=== PATIENT | male | born 1940 | race Caucasian/White ===

== ENCOUNTER 2024-12-02 14:36 | Inpatient (IN) | payer MEDICARE, SELFPAY ==
[2024-12-02 14:40] VITALS: BP 124/76; PULSE 112; RESP 18; O2SAT 92
--- NOTE | 2024-12-02 15:13 | ED.GENADULT ---
HPI - General Adult General Chief complaint: Weakness Stated complaint: Weakness Time Seen by Provider: 12/02/24 14:52 History of Present Illness HPI narrative: This 84-year-old male comes in by ambulance and his daughter also came separately. The patient himself states that he feels okay and things are going okay at home. His daughter explains that he has been on hospice care but they just cancel that prior to coming here. He had been on hospice care with his and his a few months ago. Since then he has not been eating much except he does take boost. He is having more frequent falls but yet is able to get up and ambulate. He has walkers at home but he usually does not use them. He does not report any injury from the falls and seems pleasant and has no complaints. The patient himself thinks that he is fine to go back home. His daughter states that she would be glad to take him back if he can function well enough but over the last few days he has had frequent falls and has not been functioning so well. He was incontinent of urine prior to arrival. He does have CHF for his COPD and has supplemental oxygen at home to be used when exerting himself. His oximetry here is at 92% on room air upon arrival. He does have some tachycardia on arrival. His daughter states that he has been more confused lately and she feels under the current situations that he will need some extra level of care such as a nursing facility, rehab for strengthening, or assisted living. Review of Systems Narrative: Constitutional: No fevers, no weight gain or loss. Eyes: No discharge. No vision changes. HENT: No congestion, no sore throat, no ear pain. Cardiovascular: No chest pain, no palpitations. Respiratory: No shortness of breath, no wheezes, no cough. Gastrointestinal: No abdominal pain, no vomiting, no diarrhea. Genitourinary: No dysuria, no hematuria. Musculoskeletal: Normal range of motion. Skin: No rashes, no pruritis. Neurological: No dizziness, weakness, sensory change, speech change. Endo/Heme/Allergies: No bruising or bleeding. No polydipsia. Pysch: no suicidality, no anxiety, no insomnia. All other systems reviewed and are negative. PFSH PFSH Social History Smoking Status: Never smoker Do you use any of these nicotine containing products: None Second hand tobacco smoke exposure: No How often do you have a drink containing alcohol: never AUDIT-C Alcohol total score: 0 Non-prescribed substance use: denies use service: No Exam Narrative: Exam Narrative: Constitutional: Well-developed, well-nourished, no acute distress. HEENT: Normocephalic, atraumatic. Neck: Normal range of motion. Nontender. Supple. Heart: Regular. No murmurs. Tachycardia. Intact distal pulses. Lungs: Clear to auscultation. No chest discomfort. No wheezes, rhonchi, or rales. Abdomen: Normal bowel sounds. Nontender. No rebound tenderness. Genitalia: Deferred. Back: No midline tenderness. Normal range of motion. Extremities: Normal range of motion. No injury. Skin: Intact. No rash. Warm. No erythema or pallor. Bruising throughout both forearms. Neurologic: No altered sensation. No weakness. Alert. Nursing notes and vitals signs are reviewed. Const: Vital Signs, click to edit/add: Vital Signs - 24 hr 12/02/24 14:40 Pulse Rate [Pulse Oximeter] 112 H Respiratory Rate 18 Blood Pressure [Ri ght Upper Arm] 124/76 Pulse Oximetry 92 Oxygen Delivery Me thod Room Air Course Vital Signs Vital signs: Initial Vital Signs Temperature Source Temporal Artery Scan 12/02/24 14:40 Pulse Rate 112 H 12/02/24 14:40 Respiratory Rate 18 12/02/24 14:40 Blood Pressure 124/76 12/02/24 14:40 Blood Pressure Mean 92 12/02/24 14:40 Blood Pressure Position Semi-Fowlers 12/02/24 14:40 Pulse Oximetry 92 12/02/24 14:40 Oxygen Delivery Method Room Air 12/02/24 14:40 Vital Signs Pulse Rate 112 H 12/02/24 14:40 Respiratory Rate 18 12/02/24 14:40 Blood Pressure 124/76 12/02/24 14:40 Pulse Oximetry 92 12/02/24 14:40 Oxygen Delivery Method Room Air 12/02/24 14:40 Pulse Rate 112 H 12/02/24 14:40 Respiratory Rate 18 12/02/24 14:40 Blood Pressure 124/76 12/02/24 14:40 Pulse Oximetry 92 12/02/24 14:40 Oxygen Delivery Method Room Air 12/02/24 14:40 Medical Decision Making MDM Narrative Medical decision making narrative: this patient comes in with his daughter who reports more frequent falls and confusion recently. An IV was established and labs are acquired. Urinalysis shows evidence of urinary tract infection. Other lab results are not significantly remarkable. The patient did receive an IV dose of Rocephin. I did speak with the hospitalist for admission for this patient. Hospitalist is requesting a CT scan of his head which is ordered. The patient had been on hospice care but this was canceled. His daughter is willing to take him home if he can function with less confusion which may be possible with treatment moving of his urinary tract infection. Otherwise the daughter is stating comfort cares is what is preferred for him. Lab Data Labs: Lab Results 12/02/24 12/02/24 Range/Units 15:05 15:35 WBC 10.11 (4.50-11.00) K/uL RBC 4.33 (4.30-5.90) m/uL Hgb 15.2 (13.5-17.5) gm/dL Hct 45.1 (37.0-53.0) % MCV 104 H (80-100) fL MCH 35 H (26-34) pg MCHC 34 (32-36) gm/dL RDW Coeff of Alexandra 15.5 (11.5-15.5) % Plt Count 142 (140-440) K/uL Neut % (Auto) 86.1 H (42.0-72.0) % Lymph % (Auto) 6.0 L (20-44) % [place] % (Auto) 3.1 (0.0-11.0) % Eos % (Auto) 0.0 (0.0-7.0) % Baso % (Auto) 0.0 (0.0-3.0) % Neut # (Auto) 8.70 H (1.7-7.0) K/uL Lymph # (Auto) 0.60 L (0.90-2.90) K/uL [place] # (Auto) 0.30 (0.00-0.90) K/UL Eos # (Auto) 0.00 (0.00-0.50) K/uL Baso # (Auto) 0.00 (0.00-0.30) K/uL Abs Immat Gran (auto) 0.49 H (0.00-0.30) K/uL Imm/Tot Granulo (auto) 4.8 % Sodium 136 (135-149) mmol/L Potassium 4.7 (3.6-5.1) mmol/L Chloride 100 (96-114) mmol/L Carbon Dioxide 25 (20-32) mmol/L Anion Gap 11 (7-15) mEq/L BUN 52 H (7-30) mg/dL Creatinine 1.0 (0.5-1.5) mg/dL Estimated GFR 73 ml/min Glucose 308 H (60-115) mg/dL Calcium 9.0 (8.4-10.6) mg/dL Urine Color Yellow (Yellow) Urine Appearance Cloudy A (Clear) Urine pH 5.0 (5.0-8.5) Ur Specific [place] 1.025 (1.000-1.030) Urine Protein 1+ A (Negative) Urine Glucose (UA) Trace A (Negative) Urine Ketones 1+ A (Negative) Urine Blood Trace-intact A (Negative) Urine Nitrite Negative (Negative) Urine Bilirubin Negative (Negative) Urine Urobilinogen 0.2 (0.2-1.0) Ur Leukocyte Esterase Trace A (Negative) Urine RBC 0-2 (0-2) Urine WBC 10-25 A (0-5) Ur Squamous Epith Cells Few (None-Few) Other Sediment Few A (None) Urine Bacteria Moderate A (None) Hyaline Casts Few (None-Few) Fine Granular Casts Few A (None) Imaging Data Chest x-ray: Radiologist's impression: Low lung volumes. Blunting of the left costophrenic angle which may indicate atelectasis and/or trace effusion. Faint bibasilar pulmonary opacities which may represent atelectasis or consolidation. ECG Data Attestation: I personally reviewed and interpreted this ECG as follows: Interpretation: Sinus tachycardia, rate 110 beats per minute. There are no specific ST or T-wave abnormalities. Discharge Plan Discharge Clinical Impression: Urinary tract infection, Falls frequently, Acute confusion Patient Disposition: Admitted As Observation Condition: Unchanged
[2024-12-02 15:34] LABS: Appearance Urine Cloudy (Clear); Bilirubin Urine Negative (Negative); Blood Urine Trace-intact (Negative); Color Urine Yellow (Yellow); Glucose Urine Trace (Negative); Ketones Urine 1+ (Negative); Leukocyte Esterase Urine Trace (Negative); Nitrite Urine Negative (Negative); Protein Urine 1+ (Negative); Specific Gravity Urine 1.025 (1.000-1.030); Urobilinogen Urine 0.2 (0.2-1.0)
[2024-12-02 15:41] LABS: Hematocrit 45.1 % (37.0-53.0); Hemoglobin* 15.2 gm/dL (13.5-17.5); Immature Granulocytes Abs Auto 0.49 K/uL (0.00-0.30); Immature Granulocytes Pct Auto 4.8 %; Mean Corpuscular HGB Conc 34 gm/dL (32-36); Mean Corpuscular Hemoglobin 35 pg (26-34); Mean Corpuscular Volume 104 fL (80-100); Monocytes Percent Auto 3.1 % (0.0-11.0); Platelet Count* 142 K/uL (140-440); RDW Coefficient of Variation % 15.5 % (11.5-15.5); Red Blood Count 4.33 m/uL (4.30-5.90); White Blood Count* 10.11 K/uL (4.50-11.00)
[2024-12-02 15:49] LABS: Bacteria Urine Moderate; RBC Urine 0-2 (0-2); Squamous Epithelial Cell Urine Few (None-Few)
[2024-12-02 15:50] LABS: Fine Granular Casts Urine Few; Hyaline Casts Urine Few (None-Few); Other Sediment Urine Few
[2024-12-02 15:57] LABS: Chloride* 100 mmol/L (96-114); Potassium* 4.7 mmol/L (3.6-5.1); Sodium* 136 mmol/L (135-149)
[2024-12-02 16:00] LABS: Anion Gap 11 mEq/L (7-15); Blood Urea Nitrogen* 52 mg/dL (7-30); Carbon Dioxide* 25 mmol/L (20-32); Estimated Glomerular Filt Rate 73 ml/min; Glucose* 308 mg/dL (60-115)
[2024-12-02 16:01] LABS: Neutrophils Percent Auto 86.1 % (42.0-72.0); Slide Review Reflex No
--- OUTSIDE RECORDS SUMMARY | 2024-12-02 16:50 | XMS_ITS | Encounter Summary ---
Author Organization [place] Address [facility] [place] [address] Care Team Providers Care Tool Designer Name Role Phone Manish Rmoero MD Primary Care Provider [phone] Manish Romero MD Unavailable [phone] Zhang Bee Unavailable Unavailable Iraj Adair MD Unavailable Un available Obinna Ramirez MD Primary Care Provider [phone] Obinna Ramirez MD Unavailable Jessica Joel APRN YARD ATTENDANT Unavailable [phone] Kristina Dewey PhD Unavailable [phone] Rebeka Bal [facility] Unavailable [phone] Tianna Cooper [facility] Unavailable [phone] Encounter Details Date Type Department Care Team (Late st Contact Info) Description 07/15/[address] 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 No / Unsure 07/11/2020 7:19 AM CDT documented as of this encounter Plan of Treatment Not on file documented as of this encounter Visit Diagnoses Not on filedocumented in this encounter Additional Health Concerns Infection Onset Date Last Indicated Resolved Time COVID-19 12/26/2022 12/28/2022 01/16/2023 11:3 9 PM CDT Assessment Noted Time PHQ-9 Depression Total Score: 20 020 8:52 AM CDT documented as of this encounter Care Teams Tool Designer Relationship Specialty Start Date End Date Manish Romero MD PCP - General Family Practice 01/22/15 06/22/22 [place] [address] [address] [place] [address] PCP - General Family Medicine 06/23/22 [place] [address] [place] [address] Assigned PCP 01/20/15 06/19/22 Zhang Bee Personal Advocate & Liaison (PAL) 03/24/21 01/26/22 Iraj Adair MD Assigned Heart and Vascular Provider 12/21/21 06/18/23 [place] [address] [place] [address] Assigned PCP 06/27/22 Jessica Joel APRN YARD ATTENDANT [address] [place] [phone] Assigned PCP 06/20/22 06/26/22 Kristina Dewey, PhD [address] [place] [address] Psychologist Neuropsychology 01/04/24 Rebeka Bal, [facility] Community Health Worker 08/15/2408/04 Tianna Cooper, [facility] Lead Accounting Director 08/16/24 documented as of this encounter
--- OUTSIDE RECORDS SUMMARY | 2024-12-02 16:50 | XMS_ITS | Encounter Summary ---
Author Organization [place] Address [facility] [place] [address] Care Team Providers Care Engineering Supervisor Name Role Phone Manish Romero MD Primary Care Provider [phone] Manish Romero MD Unavailable [phone] Manish Romero MD Unavailable [phone] Zhang eBe Unavailable Unavailable Iraj Adari MD Unavailable Un available Obinna Ramirez MD Primary Care Provider [phone] Obinna Ramirez MD Unavailable Jessica Joel APRN [facility] Unavailable [phone] Kristina Dewey PhD Unavailable [phone] Rebeka Bal W Unavailable [phone] [facility] Unavailable [phone] Encounter Details Date Type Department Care Team (Late st Contact Info) Description 02/06/[address] 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 PMO CONSULTANT Gender Identity Not on file Sexual Orientation Not on file documented as of this encounter Plan of Treatment Not on file documented as of this encounter Visit Diagnoses Not on filedocumented in this encounter Additional Health Concerns Infection Onset Date Last Indicated Resolved Time COVID-19 12/26/2022 12/28/2022 01/16/2023 11:3 9 PM CDT documented as of this encounter Care Teams Engineering Supervisor Relationship Specialty Start Date End Date Manish Romero MD PCP - General Family Practice 01/22/15 06/22/22 [place] [address] [place] [address] PCP - Assigned PCP 01/20/15 12/06/18 [place] [address] [place] [address] PCP - General Family Medicine 06/23/22 [place] [address] [place] [address] Assigned PCP 01/20/15 06/19/22 Zhang Bee Personal Advocate & Liaison (PAL) 03/24/21 01/26/22 Iraj Adair MD Assigned Heart and Vascular Provider 12/21/21 06/18/23 [place] [address] [place] [address] Assigned PCP 06/27/22 Jessica Joel APRN ADVERTISING ASSISTANT [address] [place] [address] Assigned PCP 06/20/22 06/26/22 Kristina Dewey, PhD [address] [place], [place] [address] Psychologist Neuropsychology 01/04/24 Rebeka Bal, [facility] Community Health Worker 08/15/2408/04 Tianna Cooper, [facility] Lead Workers Compensation Claims Assistant 08/16/24 documented as of this encounter
--- OUTSIDE RECORDS SUMMARY | 2024-12-02 16:51 | XMS_ITS | Clinical Summary ---
Author Organization [employer] [facility] Address [address] [place] [address] Care Team Providers Care Steam Hoist Operator Name Role Phone Unavailable Primary Care Provider Unavailabl e Allergies No known active allergies Medications aspirin chewable 81 mg chewable tablet Chew 81 mg by mouth once daily with a meal. Active atorvastatin (LIPITOR) 40 mg tablet Take 40 mg by mouth once daily. Active cyanocobalamin (VITAMIN B12) injection Inject 1,000 mcg intramuscular one time. Active FLUoxetine (PROZAC) 20 mg capsule Take 20 mg by mouth every morning. Active Levothyroxine 50 mcg cap Take by mouth before breakfast. Active mirtazapine (REMERON) 30 mg tablet Take 30 mg by mouth at bedtime. Active omeprazole (PRILOSEC) 40 mg Delayed-Releas e capsule Take 40 mg by mouth once daily. Active sucralfate (CARAFATE) 1 gram tablet Take 1 g by mouth 4 times daily before meals and at bedtime. Active thiamine (Vitamin B-1) 50 mg tablet Take 50 mg by mouth once daily. Active Social History Tobacco Use Types Packs/Day Years Used Date Smoking Tobacco: Never Smokeless Tobacco: Never Social Connections Answer Date Recorded Frequency of Communication with Friends and Fami ly Not on file 10/06/2023 Sex and Gender Information Value Date Recorded Sex Assigned at Not on file Legal Sex Male 6:06 PM CDT Gender Identity Not on file Sexual Orientation Not on file Obstetrics History Last Filed Vital Signs Vital Sign Reading Time Taken Comments Blood Pressure 124/65 03/28/2021 5:02 PM CDT Pulse 93 03/28/2021 5:02 PM CDT Temperature 37.2 C (98.9 F) 03/28/2021 5:02 PM CDT Respiratory Rate - - Oxygen Saturation 98% 03/28/2021 5:02 PM CDT Inhaled Oxygen Concentration - - Weight 75.8 kg (167 lb) 03/28/2021 5:02 PM CDT Height - - Body Mass Index - - Plan of Treatment Health Maintenance Due Date Last Done Comments Tdap 1949 Depression screening for age 12+ 1950 BMI (ht and wt on same day) for age 18+ 02/05/1956 Tetanus booster 1958 Pneumococcal series for age 50+ (1 of 1 - PCV) 988 Zoster (shingles) series for age 50+ (1 of 2) 02/04/19 88 RSV vaccine for adults or pr egnancy (1 - 1-dose 75+ series) 2013 COVID-19 vaccine series ( - 2023- season) 4 Influenza for age 65+ 06/04/2024 Insurance [facility]
--- OUTSIDE RECORDS SUMMARY | 2024-12-02 16:51 | XMS_ITS | Encounter Summary ---
Author Organization [place] Address [facility] [place] [address] Care Team Providers Care Mail Handlers Supervisor Name Role Phone Manish Romero MD Primary Care Provider [phone] Manish Romero MD Unavailable [phone] Zhang Bee Unavailable Unavailable Iraj Adair MD Unavailable Un available Obinna Ramirez MD Primary Care Provider [phone] Obinna Ramirez MD Unavailable Jessica Joel APRN AGRICULTURE EXTENSION SPECIALIST Unavailable [phone] Kristina Dewey PhD Unavailable [phone] Rebeka Bal [facility] Unavailable [phone] Tianna Cooper [facility] Unavailable [phone] Encounter Details Date Type Department Care Team (Late st Contact Info) Description 03/18/2021 MyC Medical Advice [facility] [address] [place] [address] [place] [address] [place] [address] Social History Tobacco Use Types Packs/Day Years Used Date Smoking Tobacco: Former Smokeless Tobacco: Never Alcohol Use Standard Drinks/Week Comments Yes 0 (1 standard drink = 0.6 oz pur e alcohol) 2 glasses of trisha a night PHQ-2 Answer Date Recorded PHQ-2 Score 5 07/11/2020 Sex and Gender Information Value Date Recorded Sex Assigned at Not on file 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 No / Unsure 02/17/2021 1:15 PM CDT documented as of this encounter Plan of Treatment Not on file documented as of this encounter Visit Diagnoses Not on filedocumented in this encounter Additional Health Concerns Infection Onset Date Last Indicated Resolved Time COVID-19 12/26/2022 12/28/2022 01/16/2023 11:3 9 PM CDT Assessment Noted Time PHQ-9 Depression Total Score: 20 020 8:52 AM CDT documented as of this encounter Care Teams Mail Handlers Supervisor Relationship Specialty Start Date End Date Manish Romero MD PCP - General Family Practice 01/22/15 06/22/22 [place] [address] [place] [address] PCP - General Family Medicine 06/23/22 [place] [address] [facility] [place] [address] Assigned PCP 01/20/15 06/19/22 Zhang Bee Personal Advocate & Liaison (PAL) 03/24/21 01/26/22 Iraj Adair MD Assigned Heart and Vascular Provider 12/21/21 06/18/23 [place] [address] [place] [address] Assigned PCP 06/27/22 Jessica Joel APRN AGRICULTURE EXTENSION SPECIALIST [address] [place] [id number] Assigned PCP 06/20/22 06/26/22 Kristina Dewey, PhD [address] [place], [place] [address] Psychologist Neuropsychology 01/04/24 Rebeka Bal, [facility] Community Health Worker 08/15/2408/04 Tianna Cooper, [facility] Lead Clay Molder 08/16/24 documented as of this encounter
--- OUTSIDE RECORDS SUMMARY | 2024-12-02 16:51 | XMS_ITS | Encounter Summary ---
Author Organization [place] Address [address] [place] [address] Care Team Providers Care Drosser Name Role Phone Obinna Ramirez MD Primary Care Provider Obinna Ramirez MD Unavailable Kristina Dewey PhD Unavailable [phone] Rebeka Bal [facility] Unavailable [phone] Tianna Cooper [facility] Unavailable [phone] Encounter Details Date Type Department Care Team (Late st Contact Info) Description 08/11/2024 MyC Medical Advice [facility] [id number] [place] [address] Jessica Xiong RN Social History Tobacco Use Types Packs/Day Years Used Date Smoking Tobacco: Former Passive Smoke Exposure: Past Smokeless Tobacco: Never Alcohol Use Standard Drinks/Week Comments Not Currently 0 (1 standard drink = 0.6 oz pur e alcohol) 2 glasses of trisha a night Social Connection and Isolat ion Panel [NHANES] Answer Date Recorded In a typical week, how many times do you talk on the phone with family, friends, or neighbors? Never 06/02/2023 How often do you get togethe r with friends or relatives? Once a week 06/02/2023 How often do you attend [facility] or holiness services? More than 4 times per year 06/02/2023 Do you belong to any clubs o r organizations such as mu-ism groups, unions, fraternal or athletic groups, or school groups? No 06/02/2023 Attends Club or Organization Meetings Not on clarisse e 06/02/2023 Are you , , di vorced, , never , or living with a partner? 06/02/2023 AUDIT-C Answer Date Recorded Q1: How often do you have a drink containing alcohol? Never 06/02/2023 Q2: How many drinks containi ng alcohol do you have on a typical day when you are drinking? Patient does not drink Q3: How often do you have si x or more drinks on one occasion? Never 06/02/2023 Overall Financial Resource Strain (CARDIA) Answe r Date Recorded How hard is it for you to pa y for the very basics like food, housing, medical care, and heating? Not hard at all 06/02/2023 PHQ-2 Answer Date Recorded PHQ-2 Score 6 07/12/2024 [facility] of Occupat ional [facility] - Occupational Stress Questionnaire Answer Date Recorded Do you feel stress - tense, restless, nervous, or anxious, or unable to sleep at night because your mind is troubled all the time - these days? Not at all 06/02/2023 Exercise Vital Sign Answer Date Recorde d On average, how many days pe r week do you engage in moderate to strenuous exercise (like a brisk walk)? 0 days 06/02/2023 On average, how many minutes do you engage in exercise at this level? 0 min 06/02/2023 Hunger Vital Sign Answer Date Recorded Within the past 12 months, y ou worried that your food would run out before you got the money to buy more. Never true 06/02/20 23 Within the past 12 months, t he food you bought just didn't last and you didn't have money to get more. Never true 06/02/2023 PRAPARE - Transportation Answer Date Re corded In the past 12 months, has l ack of transportation kept you from medical appointments or from getting medications? No 05/06 In the past 12 months, has l ack of transportation kept you from meetings, work, or from getting things needed for daily living? No 06/02/2023 Housing Stability Vital Sign Answer Ruddy e Recorded In the last 12 months, was t here a time when you were not able to pay the mortgage or rent on time? No 06/02/2023 In the last 12 months, how many places have you lived? 2 06/02/2023 In the last 12 months, was t here a time when you did not have a steady place to sleep or slept in a penitentiary (including now)? No 06/02/2023 Adolescent Education Answer Date Record ed Getting School Help Needed Not on file 07/03 Interpersonal Safety Answer Date Record ed Do you feel physically and e motionally safe where you currently live? Yes 08/30/2023 Within the past 12 months, h ave you been hit, slapped, kicked or otherwise physically hurt by someone? No 08/30/2023 Within the past 12 months, h ave you been humiliated or emotionally abused in other ways by your partner or ex-partner? 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 INSPECTOR Gender Identity Not on file Sexual Orientation Not on file documented as of this encounter Plan of Treatment Not on file documented as of this encounter Visit Diagnoses Not on filedocumented in this encounter Additional Health Concerns Assessment Noted Time PHQ-9 Depression Total Score: 18 024 11:43 AM CDT documented as of this encounter Care Teams Drosser Relationship Specialty Start [place] [address] [place] [address] PCP - General Family Medicine 06/23/22 [place] [address] [place] [address] Assigned PCP 06/27/22 Kristina Dewey, PhD [address] [place] [address] Psychologist Neuropsychology 01/04/24 Rebeka Bal, Rashid Community Health Worker 08/15/2408/04 Tianna Cooper, [facility] Lead Mortgage Funder 08/16/24 documented as of this encounter
--- OUTSIDE RECORDS SUMMARY | 2024-12-02 16:51 | XMS_ITS | Encounter Summary ---
Author Organization [place] Address [facility] [place] [address] Care Team Providers Care Monotypist Name Role Phone Manish Romero MD Primary Care Provider [phone] Manish Romero MD Unavailable [phone] Zhang Bee Unavailable Unavailable Iraj Adair MD Unavailable Un available Obinna Ramirez MD Primary Care Provider [phone] Obinna Ramirez MD Unavailable Jessica Joel APRN PETROLEUM LABORATORY TECHNICIAN Unavailable [phone] Kristina Dewey PhD Unavailable [phone] Rebeka Bal [facility] Unavailable [phone] Tianna Cooper [facility] Unavailable [phone] Encounter Details Date Type Department Care Team (Late st Contact Info) Description 06/02/[address] 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 Gender Identity Not on file Sexual Orientation [...] documented as of this encounter Care Teams Monotypist Relationship Specialty Start Date End Date Manish Romero MD PCP - General Family Practice 01/22/15 06/22/22 [place] [address] [place] [address] PCP - General Family Medicine 06/23/22 [place] [address] [place] [address] Assigned PCP 01/20/15 06/19/22 Zhang Bee Personal Advocate & Liaison (PAL) 03/24/21 01/26/22 Iraj Adair MD Assigned Heart and Vascular Provider 12/21/21 06/18/23 [place] [address] [place] [address] Assigned PCP 06/27/22 Jessica Joel APRN PETROLEUM LABORATORY TECHNICIAN [address] [place] [phone] Assigned PCP 06/20/22 06/26/22 Kristina Dewey, PhD [address] [place] [address] Psychologist Neuropsychology 01/04/24 Rebeka Bal, Rashid Community Health Worker 08/15/2408/04 Tianna Cooper, [facility] Lead Cross Country Coach 08/16/24 documented as of this encounter
--- OUTSIDE RECORDS SUMMARY | 2024-12-02 16:51 | XMS_ITS | Encounter Summary ---
Author Organization [facility] Address [address] [facility] [place] [address] Care Team Providers Care Regional Marketing Manager Name Role Phone Obinna Ramirez MD Primary Care Provider Obinna Ramirez MD Unavailable Kristina Dewey PhD Unavailable Encounter Details Date Type Department Care Team (Late st Contact Info) Description 10/19/2024 Orders Only [facility] [id number] [place] [address] [place] [address] [place] [address] DIAGNOSIS NOT YET DEFINED (Primary Dx) Social History Tobacco Use Types Packs/Day Years Used Date Smoking Tobacco: Former Pipe Passive Smoke Exposure: Past Smokeless Tobacco: Never Alcohol Use Standard Drinks/Week Comments Not Currently 0 (1 standard drink = 0.6 oz pur e alcohol) 2 glasses of trisha a night Social Connection and Isolation Panel [NHANES] A nswer Date Recorded In a typical week, how many times do you talk on the phone with family, friends, or neighbors? Once a week 08/21/20 How often do you get togethe r with friends or relatives? Three times a week 08/21/2024 How often do you attend [facility] or latter-day services? 1 to 4 times per year 08/21/2024 Do you belong to any clubs o r organizations such as christianity groups, unions, fraternal or athletic groups, or school groups? No 08/21/2024 How often do you attend meet ings of the clubs or organizations you belong to? Never 08/21/2024 Are you , , di vorced, , never , or living with a partner? 08/21/2024 AUDIT-C Answer Date Recorded Q1: How often do you have a drink containing alcohol? Never 08/21/2024 Q2: How many drinks containi ng alcohol do you have on a typical day when you are drinking? Patient does not drink Q3: How often do you have si x or more drinks on one occasion? Never 08/21/2024 PHQ-2 Answer Date Recorded PHQ-2 Score 6 07/12/2024 [facility] - Occupational Stress Questionnaire Answer Date Recorded Do you feel stress - tense, restless, nervous, or anxious, or unable to sleep at night because your mind is troubled all the time - these days? To some extent 08/21/2024 Exercise Vital Sign Answer Date Recorde d On average, how many days pe r week do you engage in moderate to strenuous exercise (like a brisk walk)? 0 days 08/21/2024 On average, how many minutes do you engage in exercise at this level? 0 min 08/21/2024 Adolescent Education Answer Date Record ed Getting School Help Needed Not on file 07/03 Food Insecurity Answer Date Recorded Within the past 12 months, d id you worry that your food would run out before you got money to buy more? No 08/21/2024 Within the past 12 months, d id the food you bought just not last and you didn t have money to get more? No 08/21/2024 Housing Stability Answer Date Recorded Do you have housing? (Housin g is defined as stable permanent housing and does not include staying ouside in a car, in a tent, in an abandoned building, in an overnight jail, or couch-surfing.) Yes 08/21/2024 Are you worried about losing your housing? No 08/21/2024 Financial Resource Strain Answer Date R ecorded Within the past 12 months, h ave you or your family members you live with been unable to get utilities (heat, electricity) when it was really needed? No 08/21/2024 Transportation Needs Answer Date Record ed Within the past 12 months, h as lack of transportation kept you from medical appointments, getting your medicines, non-medical meetings or appointments, work, or from getting things that you need? 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 Author Hospice Eval Care Plan [facility] Evva No Tianna Cooper, [facility] Note: Barriers: Declining health Strengths: In agreement and seeking additional support Patient expressed understanding of goal: Yes Action steps to achieve this goal: 1. I will continue to rely on my family 2. I will follow-up with [facility] to coordinate in-home hospice eval 3. I will update career technical counselor if additional support and assistance needed and if not eligible for hospice documented as of this encounter Procedures Procedure Name Priority Date/Time Associated Diagnosis Comments [place] MD CERTIFICATION [facility] PATIENT Routine 10/19/2024 DIAGNOSIS NOT YET DEFINED documented in this encounter Results * MD CERTIFICATION [facility] PATIENT (10/19/2024) Obinna Ramirez MD SPECIAL REPORTS Final Result documented in this encounter Visit Diagnoses Diagnosis DIAGNOSIS NOT YET DEFINED- Primary documented in this encounter Additional Health Concerns Active Problems Noted Date Diagnosed Date Hopsice Eval 08/18/2024 Assessment Noted Time PHQ-9 Depression Total Score: 18 024 11:43 AM CDT documented as of this encounter Care Teams Regional Marketing Manager Relationship Specialty Start [place] [address] [place], [place] [phone] PCP - General Family Medicine 06/23/22 [place] [address] [place], [place] [id number] Assigned PCP 06/27/22 Kristina Dewey, PhD [address] [place], [place] [address] Psychologist Neuropsychology 01/04/24 documented as of this encounter
--- OUTSIDE RECORDS SUMMARY | 2024-12-02 16:51 | XMS_ITS | Encounter Summary ---
Author Organization [place] Address [facility] [place] [address] Care Team Providers Care Hemming And Tacking Machine Operator Name Role Phone Manish Romero MD Primary Care Provider [phone] Manish Romero MD Unavailable [phone] Zhang Bee Unavailable Unavailable Iarj Adair MD Unavailable Un available Obinna Ramirez MD Primary Care Provider Obinna Ramirez MD Unavailable Jessica Joel APRN CARE TRANSPORT NURSE Unavailable Kristina Dewey PhD Unavailable [phone] 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 Gender Identity Not on file Sexual Orientation [...] documented as of this encounter Care Teams Hemming And Tacking Machine Operator Relationship Specialty Start Date End Date Manish Romero MD PCP - General Family Practice 01/22/15 06/22/22 [place] [address] [facility] [place] [address] PCP - General Family Medicine 06/23/22 [place] [address] [facility] [address] Assigned PCP 01/20/15 06/19/22 Zhang Bee Personal Advocate & Liaison (PAL) 03/24/21 01/26/22 Iraj Adair MD Assigned Heart and Vascular Provider 12/21/21 06/18/23 [place] [address] [place] [address] Assigned PCP 06/27/22 Jessica Joel APRN CARE TRANSPORT NURSE [address] [place] [phone] Assigned PCP 06/20/22 06/26/22 Kristina Dewey, PhD [address] [place], [place] [address] Psychologist Neuropsychology 01/04/24 Rebeka Bal, [facility] Community Health Worker 08/15/2408/04 Tianna Cooper, [facility] Lead Fish Inspector 08/16/24 documented as of this encounter
--- OUTSIDE RECORDS SUMMARY | 2024-12-02 16:51 | XMS_ITS | Clinical Summary ---
Author Organization [facility] Address [address] [place] [address] Care Team Providers Care Division Sales Manager Name Role Phone Zack Berman MD Primary Care Provider [phone] Source Comments You are receiving this document as you are listed as the primary care provider,follow-up provider, or the patient has been referred to you for consultation.This is in compliance with the Medicare and[facility] EHR Incentive Program,which states Providers who transition their patient to another setting of careor provider of care or refers their patient to another provider of care shouldprovide summary care record for each transition of care or referral. [facility] Allergies No known active allergies Medications * This document contains information received from the source organization and may not represent a complete record from that organization. UNKNOWN MEDICATION Indications: PN: 13 4 Active UNKNOWN MEDICATION LW Comment:Viagra 100mg LW Addl Instr:Pt needs appt before refills. 1 0 Active UNKNOWN MEDICATION Indications: PN: 1 Active sildenafil (AKA VIAGRA) 100 MG tablet Take 1 tablet by mouth as needed. LW Addl Instr:Take 1/2 to 4 hours prior to intercourse. Maximum 1 dose/24 hours. Indicated for: Erectile Dysfunction 18 3 8 Active prednisoLONE acetate (PRED FORTE) 1 % eye drop suspension start 1 drop after surgery in operative eye 4 xD 7 days 3xD 7 days 2 XD for 7 days 1XD 7 days. 10 mL 2 8 Active ofloxacin (OCUFLOX) 0.3 % eye drop solution start 1 drop in operative eye 4X D 3 days prior to surgery. Then 4 X D 7 days after surgery. 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 Overview (05/26/2017): LW Onset: 54Qjc23 ; Erectile Dysfunction Rosacea 03/26/2004 Overview (05/07/2016): LW Onset: 05Liz77 Blepharitis 03/26/2004 Overview (05/26/2017): LW Onset: 20Hve54 ; Blepharitis NOS Sleep apnea 03/10/2003 Overview (05/26/2017): Obstructive Sleep Apnea Hypopnea Esophageal reflux 03/10/2003 Overview (05/26/2017): Gastroesophageal Reflux Disease Obesity 03/10/2003 Immunizations Immunization Administration Dates Next Due Flu Vac Preserv Free (3+yrs) 07/20/2008,07/08/20 04 HepA Adult (19+ yrs) 07/05/2002,07/08/1999 IPV (Polio) 07/08/1999 Influenza, Unspecified Formulation 07/05/2002 PPSV23 (Pneumovax) 01/23/1999 Td 01/24/2003,10/04/1994 Typhoid (Typhim Vi, IM) 06/03/2005,07/05/2002 YF (Yellow Fever) 07/06/2005 Family History Medical History Relation Name Comments Diabetes Paternal Grandmother Cataract Negative Family History Glaucoma Negative Family History Hypertension Negative Family History Macular Degeneration Negative Family History Relation Name Status Comments Paternal Grandmother Social History Tobacco Use Types Packs/Day Years Used Date Smoking Tobacco: Passive Smo ke Exposure - Never Smoker Comments Unknown Sex and Gender Information Value Date Recorded Sex Assigned at Not on file Legal Sex Female 5:10 AM CDT Gender Identity Not on file Sexual Orientation Not on file Last Filed Vital Signs Vital Sign Reading Time Taken Comments Blood Pressure 134/74 07/20/2008 2:29 PM CDT Pulse 72 07/20/2008 2:29 PM CDT Temperature - - Respiratory Rate - - Oxygen Saturation - - Inhaled Oxygen Concentration - - Weight 93 kg (204 lb 15.7 oz) 07/20/2008 2:29 PM CDT C: 93.0kg Height 172.7 cm (5' 8) 09/04/2005 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 C: 172.7cm Body Mass Index 31.17 09/04/2005 10:05 AM STEEL HANDLER Plan of Treatment Health Maintenance Due Date Last Done Comments Medicare Annual Wellness Visit 1938 Zoster/Shingles (1 of 2) 02/05/1988 Dexa 2003 RSV (1 - 1-dose 75+ series) 2013 Pneumococcal 50+ Yrs (3 of 3 - PCV) 10/09/2021 10/09/2016, 01/23/1999 COVID-19 Vaccine ( - 2023- season) 2024 Influenza (#1) 2024 10/09/2016, 07/04, 07/08/2004, Additional history exists DTaP/Tdap/Td (3 - Tdap) 01/27/2026 01/28/20 16, 06/03/2005, 01/24/2003, Additional history exists IPV (Polio) Aged Out 07/08/1999 No longer eligi ble based on patient's age to complete this topic HepA Aged Out 07/05/2002, 07/08/1999 No lo nger eligible based on patient's age to complete this topic HepB Aged Out No longer eligi ble based on patient's age to complete this topic Hib Aged Out No longer eligi ble based on patient's age to complete this topic MCV4 Aged Out No longer eligi ble based on patient's age to complete this topic Meningococcal B Aged Out No longer el igible based on patient's age to complete this topic Insurance [facility] BLUE MEDICARE MANAGED CARE BS Care Teams Division Sales Manager Relationship Specialty Start Date End Date Zack Berman MD [address] [place] [phone] PCP - General 01/04/11
--- OUTSIDE RECORDS SUMMARY | 2024-12-02 16:51 | XMS_ITS | Encounter Summary ---
Author Organization [place] Address [facility] [place] [address] Care Team Providers Care Board Certified Orthodontist Name Role Phone Manish Romero MD Primary Care Provider [phone] Manish Romero MD Unavailable [phone] Zhang Bee Unavailable Unavailable Iraj Adair MD Unavailable Un available Obinna Ramirez MD Primary Care Provider Obinna Ramirez MD Unavailable Jessica Joel APRN ROD TAPE OPERATOR Unavailable [phone] Kristina Dewey PhD Unavailable [phone] Rebeka Bal [facility] Unavailable [phone] Tianna Cooper [facility] Unavailable [phone] Encounter Details Date Type Department Care Team (Late st Contact Info) Description 10/31/2020 MyC Medical Advice [facility] [address] [place] [address] [place] [address] [place] [address] Social History Tobacco Use Types [...] on file 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 No / Unsure 10/31/2020 8:45 AM MOID MIDDLE SCHOOL TEACHER documented as of this encounter Plan of Treatment Not on file documented as of this encounter Visit Diagnoses Not on filedocumented in this encounter Additional Health Concerns Infection Onset Date Last Indicated Resolved Time COVID-19 12/26/2022 12/28/2022 01/16/2023 11:3 9 PM CDT Assessment Noted Time PHQ-9 Depression Total Score: 20 020 8:52 AM CDT documented as of this encounter Care Teams Board Certified Orthodontist Relationship Specialty Start Date End Date Manish Romero MD PCP - General Family Practice 01/22/15 06/22/22 [place] [address] [place] [address] PCP - General Family Medicine 06/23/22 [place] [address] [place] [address] Assigned PCP 01/20/15 06/19/22 Zhang Bee Personal Advocate & Liaison (PAL) 03/24/21 01/26/22 Iraj Adair MD Assigned Heart and Vascular Provider 12/21/21 06/18/23 [place] [address] [place] [address] Assigned PCP 06/27/22 Jessica Joel APRN ROD TAPE OPERATOR [address] [place] [place] [phone] Assigned PCP 06/20/22 06/26/22 Kristina Dewey, PhD [address] [place], [place] [address] Psychologist Neuropsychology 01/04/24 Rebeka Bal, [facility] Community Health Worker 08/15/2408/04 Tianna Cooper, [facility] Lead Data Center Manager 08/16/24 documented as of this encounter
--- OUTSIDE RECORDS SUMMARY | 2024-12-02 16:51 | XMS_ITS | Clinical Summary ---
Author Organization [facility] Address [address] [place] [address] Care Team Providers Care Continuing Education Director Name Role Phone Obinna Ramirez MD Primary Care Provider [phone] Obinna Ramirez MD Unavailable Kristina Dewey PhD Unavailable [phone] Allergies No known active allergies Medications aspirin (ASA) 81 MG chewable tabletIndicatio ns:Cerebrovascu lar accident (CVA), unspecified mechanism (H) CHEW AND SWALLOW 1 TABLET BY MOUTH ONCE DAILY 90 tablet 3 08/12/20 20 Active Nutritional Supplements (BOOST KIDS ESSENTIALS) LIQD Take 1 Bottle by mouth 3 times daily Active colchicine (COLCYRS) 0.6 MG tabletIndicatio ns:Acute gout due to other secondary cause involving toe of right foot Take 1.2 mg at the first sign of flare, followed in 1 hour with a single dose of 0.6 mg. May continue 1 tab daily until flare stops. 15 tablet 10/14/19 21 Active vitamin B-12 (CYANOCOBALAMIN ) 1000 MCG tabletIndicatio ns:Vitamin B12 deficiency without anemia Take 1 tablet (1,000 mcg) by mouth daily 90 tablet 3 08/12/20 22 Active triamcinolone (KENALOG) 0.1 % external creamIndication s:Contact dermatitis, unspecified contact dermatitis type, unspecified trigger Apply topically 2 times daily 80 g 03/10/20 23 Active sildenafil (REVATIO) 20 MG tabletIndicatio ns:Erectile dysfunction, unspecified erectile dysfunction type Take 1 tablet (20 mg) by mouth daily as needed (erectile dysfunction) 40 mg once daily as needed 1 hour before sexual activity; may be taken up to 4 hours before sexual activity. Reduce to 20 mg once daily if side effects occur. May increase to a maximum dose of 100 mg once daily if there is incomplete response 12 tablet 3 06/02/20 23 Active donepezil (ARICEPT) 5 MG tablet Take 5 mg by mouth at bedtime 07/12/20 23 Active fluticasone (FLONASE) 50 MCG/ACT nasal sprayIndication s:Acute non-recurrent sinusitis, unspecified location Peck 2 sprays into both nostrils daily 16 g 1 12/07/19 24 Active Additional Information Patient not taking.Reported on 08/15/2024 buPROPion (WELLBUTRIN XL) 300 MG 24 hr tabletIndicatio ns:Moderate recurrent major depression (H) Take 1 tablet (300 mg) by mouth every morning 90 tablet 3 12/21/19 24 Active mirtazapine (REMERON) 30 MG tabletIndicatio ns:Weight loss Take 1 tablet (30 mg) by mouth at bedtime 90 tablet 3 04/25/20 24 Active vitamin B1 (THIAMINE) 50 MG tabletIndicatio ns: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) Take 2 tablets by mouth once daily 180 tablet 3 06/08/20 24 Active venlafaxine (EFFEXOR XR) 150 MG 24 hr capsuleIndicati ons:Weight loss,Moderate major depression (H) Take 1 capsule by mouth once daily 90 capsule 2 06/08/20 24 Active omeprazole (PRILOSEC) [address] capsuleIndicati ons:Gastroesoph ageal reflux disease with esophagitis without hemorrhage Take 1 capsule by mouth once daily 90 capsule 2 06/08/20 24 Active atorvastatin (LIPITOR) 40 MG tabletIndicatio ns:Cerebrovascu lar accident (CVA), unspecified mechanism (H) Take 1 tablet by mouth in the evening 90 tablet 2 07/26/20 24 Active modafinil (PROVIGIL) 200 MG tabletIndicatio ns:Daytime sleepiness Take 1 tablet (200 mg) by mouth daily. 30 tablet 08/09/20 24 Active levothyroxine (SYNTHROID/LEVO THROID) 50 MCG tabletIndicatio ns:Hypothyroidi sm, unspecified type Take 1 tablet by mouth once daily 90 tablet 10/20/19 25 Active venlafaxine (EFFEXOR XR) 75 MG 24 hr capsuleIndicati ons:Moderate major depression (H) Take 1 capsule by mouth once daily 90 capsule 3 11/29/19 25 Active amphetamine-dex troamphetamine (ADDERALL XR) 20 MG 24 hr capsuleIndicati ons:Other fatigue Take 1 capsule (20 mg) by mouth daily. 30 capsule 10/14/19 25 025 venlafaxine (EFFEXOR XR) 75 MG 24 hr capsuleIndicati ons:Moderate major depression (H) Take 1 capsule by mouth once daily 90 capsule 09/04/20 24 025 Discontinued Hospital, Clinic, or Other Facility Administered Medication Ordered Dose Route Frequency Start Date End Date Status cyanocobalamin injection 1,000 mcgIndications:Vitamin B12 deficiency without anemia 1000 mcg IM EVERY 30 DAYS 09/17/2021 Active Active Problems Problem Noted Date Diagnosed Date Major depression, recurrent 12/07/2023 Alcohol dependence in remission 09/08/2021 Vascular dementia with depressed mood 10/18/2020 Hypokalemia 09/28/2020 Generalized muscle weakness 09/28/2020 Recurrent falls 09/28/2020 Alcoholic intoxication without complication 09/04 Moderate major depression 07/15/2020 Weight loss 02/23/2020 Hypothyroidism 02/01/2018 Rosacea 01/24/2018 Prediabetes 02/06/2015 Vitamin B12 deficiency without anemia 02/05/2015 Resolved Problems Problem Noted Date Diagnosed Date Resolved Date Heavy alcohol use 01/21/2018 09/08/2021 Subclinical hypothyroidism 2016 0 02/01/2018 CARDIOVASCULAR SCREENING; LD L GOAL LESS THAN 160 08/03/2010 01/28/2016 Encounters Date Type Department Care Team Description 11/29/2024 Refill [facility] [address] [place] [phone] Tea Spear MD Medication Refill 10/20/2024 Refill [facility] [id number] [place] [phone] Obinna Ramirez MD Medication Refill 10/19/2024 Orders Only [facility] [address] [place] [address] Obinna Ramirez MD DIAGNOSIS NOT YET DEFINED (Primary Dx) 09/04/2024 Telephone [facility] [address] [place] [address] Obinna Ramirez MD Call Back from Last 3 Months Immunizations Name Administration Dates Next Due COVID-19 Monovalent 18+ (Moderna) 08/02/2021,08/2021,11/14/2020 HEPA 07/05/2002,07/08/1999 Influenza (High Dose) Trival ent,PF (Fluzone) 07/05/2020,07/17/2019,07/28/2018 Influenza Vaccine 65+ (Fluzone HD) 05/04,06/23/2022,07/07/2021,2019 Influenza Vaccine, 6+MO IM (QUADRIVALENT W/PRESERVATIVES) 10/09/2016 Pneumo Conj 13-V (2010&after) 10/09/2016 Pneumococcal 20 valent Conju gate (Prevnar 20) 05/26/2023 Pneumococcal 23 valent 08/30/2018,01/23/1999 Poliovirus, inactivated (IPV) 07/08/1999 RSV Vaccine (Arexvy) 06/15/2023 TDAP (Adacel,Boostrix) 06/03/2005 TDAP Vaccine (Boostrix) 01/28/2016 Yellow Fever 07/06/2005 Zoster recombinant adjuvante d (SHINGRIX) 07/11/2020,08/30/2018 Family History Medical History Relation Comments Cerebrovascular Disease Father Relation Status Comments Father Mother Social History Tobacco Use Types Packs/Day Years Used Date Smoking Tobacco: Former Pipe Passive Smoke Exposure: Past Smokeless Tobacco: Never Tobacco Cessation:Counseling Given: Not Answered Alcohol Use Standard Drinks/Week Comments Not Currently [...] week 08/21/2024 How often do you attend chur ch or yarsani services? 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 Gender Identity Not on file Sexual Orientation Not on file Last Filed Vital Signs Vital Sign Reading Time Taken Comments Blood Pressure 110/64 07/12/2024 11:05 AM CDT Pulse 85 07/12/2024 11:05 AM CDT Temperature 36.6 C (97.8 F) 07/12/2024 11:05 AM CDT Respiratory Rate 20 07/12/2024 11:05 AM CDT Oxygen Saturation 97% 07/12/2024 11:05 AM CDT Inhaled Oxygen Concentration - - Weight 79.8 kg (176 lb) 07/12/2024 11:05 AM CDT Height 172.7 cm (5' 8) 07/12/2024 11:05 AM CDT Body Mass Index 26.76 07/12/2024 11:05 AM CDT Plan of Treatment Health Maintenance Due Date Last Done Comments ANNUAL REVIEW OF HM ORDERS 06/02/2024 06/02/2023, COVID-19 Vaccine ( season) 2024 01/02/2022, 08/02/2021, 12/12/2020, Additional history exists INFLUENZA VACCINE (#1) 2024 , 06/23/2022, 07/07/2021, Additional history exists LIPID 12/06/2024 12/07/2023, 12/02, 01/21/2018, Additional history exists TSH W/FREE T4 REFLEX 12/06/2024 12/07/2023, 04/05/2023, 06/23/2022, Additional history exists PHQ-9 01/10/2025 07/12/2024, 01/03, 12/21/2023, Additional history exists MEDICARE ANNUAL WELLNESS VISIT 07/12/2025 07/12/2024, 06/02/2023, 03/25/2022, Additional history exists FALL RISK ASSESSMENT 08/18/2025 08/18/2024, 08/16/2024, 07/12/2024, Additional history exists DTAP/TDAP/TD IMMUNIZATION (3 - Td or Tdap) 01/27/2026 01/28/2016, 06/03/2005 ADVANCE CARE PLANNING 07/12/2029 07/12/2024 , 03/25/2022, 01/14/2015 DEPRESSION ACTION PLAN Completed 07/11/2020, 2019 ZOSTER IMMUNIZATION Completed 07/11/2020, 8 Pneumococcal Vaccine: 50+ Years Completed 05/26/2023, 08/30/2018, 10/09/2016, Additional history exists RSV VACCINE Completed 06/15/2023 HPV IMMUNIZATION Aged Out No longer e ligible based on patient's age to complete this topic MENINGITIS IMMUNIZATION Aged Out No l onger eligible based on patient's age to complete this topic Goals Goal Patient Goal Type Associated Problems Recent Progress Patient-Stated? Author Hospice Eval Care Plan Tianna Langston, [facility] Note: Barriers: Declining health Strengths: In agreement and seeking additional support Patient expressed understanding of goal: Yes Action steps to achieve this goal: 1. I will continue to rely on my family 2. I will follow-up with [facility] to coordinate in-home hospice eval 3. I will update care giver if additional support and assistance needed and if not eligible for hospice Procedures Procedure Name Priority Date/Time Associated Diagnosis Comments CO MD CERTIFICATION GANG WORKER PATIENT Routine 10/19/2024 DIAGNOSIS NOT YET DEFINED TSH WITH FREE T4 REFLEX Routine 12/07/2023 12:04 PM CLINIQUE COUNTER MANAGER Hypothyroidism, unspecified type LIPID REFLEX TO DIRECT LDL PANEL Routine 12/07/2023 12:04 PM CLINIQUE COUNTER MANAGER Screening for condition from Last 3 Months or Most Recently Relevant to Health Maintenance Results * MD CERTIFICATION GANG WORKER PATIENT (10/19/2024) Obinna Ramirez MD SPECIAL REPORTS Final Result * TSH with free T4 reflex (12/07/2023 12:04 PM CLINIQUE COUNTER MANAGER) TSH 3.12 0.30 - 4.20 uIU/mL 12/08/2023 11:21 AM CLINIQUE COUNTER MANAGER [facility] Blood BLOOD SPECIMEN / Unknown Venipuncture / Unknown 12/07/2023 12:04 PM CLINIQUE COUNTER MANAGER 12/07/2023 12:09 PM CLINIQUE COUNTER MANAGER Obinna Ramirez MD LAB - BLOOD ORDERABLES Final Res ult [facility] [address] [facility], [address] [address], [facility] [phone] * Lipid panel reflex to direct LDL Non-fasting (12/07/2023 12:04 PM CLINIQUE COUNTER MANAGER) Cholesterol 110 <200 mg/dL 12/08/2023 11:21 AM CLINIQUE COUNTER MANAGER [facility] Triglycerides 78 <150 mg/dL 12/08/2023 11:21 AM CLINIQUE COUNTER MANAGER [facility] Direct Measure HDL 45 >=40 mg/dL 2023 11:21 AM CLINIQUE COUNTER MANAGER [facility] LDL Cholesterol Calculated 49 <=100 mg/dL 12/08/2023 11:21 AM CLINIQUE COUNTER MANAGER [facility] Non HDL Cholesterol 65 <130 mg/dL 12/08/2023 11:21 AM CLINIQUE COUNTER MANAGER [facility] Patient Fasting > 8hrs? Yes 12/08/2023 11:21 AM CLINIQUE COUNTER MANAGER [facility] Blood BLOOD SPECIMEN / Unknown Venipuncture / Unknown 12/07/2023 12:04 PM CLINIQUE COUNTER MANAGER 12/07/2023 12:09 PM CLINIQUE COUNTER MANAGER Narrative [facility] - 12/08/2023 11:21 AM CLINIQUE COUNTER MANAGER Cholesterol Desirable: <200 mg/dL Triglycerides Normal: Less than 150 mg/dL Borderline High: 150-199 mg/dL High: 200-499 mg/dL Very High: Greater than or equal to 500 mg/dL Direct Measure HDL Female: Greater than or equal to 50 mg/dL Male: Greater than or equal to 40 mg/dL LDL Cholesterol Desirable: <100mg/dL Above Desirable: 100-129 mg/dL Borderline High: 130-159 mg/dL High: 160-189 mg/dL Very High: >= 190 mg/dL Non HDL Cholesterol Desirable: 130 mg/dL Above Desirable: 130-159 mg/dL Borderline High: 160-189 mg/dL High: 190-219 mg/dL Very High: Greater than or equal to 220 mg/dL us Obinna Ramirez MD LAB - BLOOD ORDERABLES Final Res ult [facility] [address] [facility], [address] [place] [address], [facility] [phone] from Last 3 Months or Most Recently Relevant to Health Maintenance Additional Health Concerns Active Problems Noted Date Diagnosed Date Hopsice Eval 08/18/2024 Insurance [facility] UC[employer] MEDICARE Advance Directives For more information, please contact: [phone] Documents on File Type Date Recorded 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 Advance Directives and Living Will 12/21/2017 8:17 AM Health Care Directiv e 11/30/2017 * Full Code (Latest Code Status on File) Date Activated Date Inactivated Comments 09/28/2020 3:32 PM 12/24/2020 5:09 PM Question Answer Comments Code status determined by: Discussion with patie nt/ legal decision maker * Full Code Date Activated Date Inactivated Comments 09/28/2020 3:39 AM 09/28/2020 3:32 PM All basic and advanced life-sustaining interventions are performed as appropriate Question Answer Comments Code status determined by: Unable to det ermine; FULL CODE until documents or legal decision maker available * Full Code Date Activated Date Inactivated Comments 02/24/2020 10:45 AM 09/27/2020 11:36 PM Question Answer Comments Code status determined by: Discussion with patie nt/legal decision maker * Full Code Date Activated Date Inactivated Comments 02/23/2020 1:13 PM 02/24/2020 10:45 AM Question Answer Comments Code status determined by: Discussion with patie nt/legal decision maker Care Teams Continuing Education Director Relationship Specialty [place] [address] [place] [address] PCP - General Family Medicine 06/23/22 [place] [address] [place] [address] Assigned PCP 06/27/22 Kristina Dewey, PhD [address] [place], [place] [address] Psychologist Neuropsychology 01/04/24
--- OUTSIDE RECORDS SUMMARY | 2024-12-02 16:51 | XMS_ITS | Encounter Summary ---
Author Organization [facility] Address [address] [place] [address] Care Team Providers Care Recording Clerk Name Role Phone Manish Romero MD Primary Care Provider [phone] Manish Romero MD Unavailable [phone] Zhang Bee Unavailable Unavailable Iraj Adair MD Unavailable Un available Obinna Ramirez MD Primary Care Provider Obinna Ramirez MD Unavailable Jessica Joel APRN TECHNICAL SPEC Unavailable [phone] Kristina Dewey PhD Unavailable [phone] Rebeka Bal [facility] Unavailable [phone] Tianna Cooper [facility] Unavailable [phone] Encounter Details Date Type Department Care Team (Late st Contact Info) Description 06/24/2020 MyC Medical Advice [facility] [address] [place] [address] Noemi Gray APRN TECHNICAL SPEC [address] [place] [address] Social History Tobacco Use Types Packs/Day Years Used Date Smoking Tobacco: Former Smokeless Tobacco: Never Alcohol Use Standard Drinks/Week Comments Yes 0 (1 standard drink = 0.6 oz pur e alcohol) a jug of trisha a week PHQ-2 Answer Date Recorded PHQ-2 Score 3 06/24/2020 Sex and Gender Information Value Date Recorded Sex Assigned at Not on file 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 UNIT TENDER Gender Identity Not on file Sexual Orientation Not on file COVID-19 Exposure Response Date Recorded In the last month, have you been in contact with someone who was confirmed or suspected to have Coronavirus / COVID-19? No / Unsure 05/29/2020 10:02 AM CDT documented as of this encounter Plan of Treatment Not on file documented as of this encounter Visit Diagnoses Not on filedocumented in this encounter Additional Health Concerns Infection Onset Date Last Indicated Resolved Time COVID-19 12/26/2022 12/28/2022 01/16/2023 11:3 9 PM CDT Assessment Noted Time PHQ-9 Depression Total Score: 18 020 7:07 AM CDT documented as of this encounter Care Teams Recording Clerk Relationship Specialty Start Date End Date Manish Romero MD PCP - General Family Practice 01/22/15 06/22/22 [place] [address] [place] [address] PCP - General Family Medicine 06/23/22 [place] [address] [place] [address] Assigned PCP 01/20/15 06/19/22 Zhang Bee Personal Advocate & Liaison (PAL) 03/24/21 01/26/22 Iraj Adair MD Assigned Heart and Vascular Provider 12/21/21 06/18/23 [place] [address] [place] [address] Assigned PCP 06/27/22 Jessica Joel APRN TECHNICAL SPEC [address] [place] [phone] Assigned PCP 06/20/22 06/26/22 Kristina Dewey, PhD [address] [place] [address] Psychologist Neuropsychology 01/04/24 Rebeka Bal Rashid Community Health Worker 08/15/2408/04 Tianna Cooper, [facility] Lead Senior Technical Support Analyst 08/16/24 documented as of this encounter
--- OUTSIDE RECORDS SUMMARY | 2024-12-02 16:51 | XMS_ITS | Encounter Summary ---
Author Organization [facility] Address [address] [place] [address] Care Team Providers Care Sailing Instructor Name Role Phone Obinna Ramirez MD Primary Care Provider Obinna Ramirez MD Unavailable Kristina Dewey PhD Unavailable [phone] Rebeka Bal [facility] Unavailable [phone] Tianna Cooper [facility] Unavailable Encounter Details Date Type Department Care Team (Late st Contact Info) Description 08/16/2024 MyC Medical Advice [facility] Care Coordination [facility] [address] [place] [phone] Rebeka Bal [facility] Social History Tobacco Use Types Packs/Day Years [...] week 06/02/2023 [facility] often do you attend [facility]? More than 4 times per year 06/02/2023 Do you belong to any clubs o r organizations such as evangelical groups, unions, fraternal or athletic groups, or [...] Answer Date Recorded PHQ-2 Score 6 07/12/2024 [facility] - Occupational Stress Questionnaire Answer Date Recorded [...] place to sleep or slept in a senior living (including now)? No 06/02/2023 Adolescent Education Answer [...] on file 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 COMPUTATIONAL LINGUIST Gender Identity Not on file Sexual Orientation Not on file documented as of this encounter Plan of Treatment Not on file documented as of this encounter Visit Diagnoses Not on filedocumented in this encounter Additional Health Concerns Assessment Noted Time PHQ-9 Depression Total Score: 18 024 11:43 AM CDT documented as of this encounter Care Teams Sailing Instructor Relationship Specialty Start [place] [address] [place] [address] PCP - General Family Medicine 06/23/22 [place] [address] [place] [address] Assigned PCP 06/27/22 Kristina Dewey, PhD [address] [place] [address] Psychologist Neuropsychology 01/04/24 Rebeka Bal, Rashid Community Health Worker 08/15/2408/04 Tianna Cooper, [facility] Lead Technologist Infectious Disease 08/16/24 documented as of this encounter
--- OUTSIDE RECORDS SUMMARY | 2024-12-02 16:51 | XMS_ITS | Encounter Summary ---
Author Organization [facility] Address [facility] [place] [address] Care Team Providers Care Communications Director Name Role Phone Manish Romero MD Primary Care Provider [phone] Manish Romero MD Unavailable [phone] Zhang Bee Unavailable Unavailable Iraj Adair MD Unavailable Un available Obinna Ramirez MD Primary Care Provider [phone] Obinna Ramirez MD Unavailable Jessica Joel APRN [employer] Unavailable [phone] Kristina Dewey PhD Unavailable [phone] Rebeka Bal [facility] Unavailable [phone] Tianna Cooper [facility] Unavailable [phone] Encounter Details Date Type Department Care Team (Late st Contact Info) Description 03/18/2021 MyC Medical Advice [facility] [address] [place] [address] [place] [address] [place] [address] Social History Tobacco Use Types [...] on file 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 Gender Identity Not on file Sexual Orientation [...] documented as of this encounter Care Teams Communications Director Relationship Specialty Start Date End Date Manish Romero MD PCP - General Family Practice 01/22/15 06/22/22 [place] [address] [place] [address] PCP - General Family Medicine 06/23/22 [place] [address] [facility] [place] [address] Assigned PCP 01/20/15 06/19/22 Zhang Bee Personal Advocate & Liaison (PAL) 03/24/21 01/26/22 Iraj Adair MD Assigned Heart and Vascular Provider 12/21/21 06/18/23 [place] [address] [place] [address] Assigned PCP 06/27/22 Jessica Joel APRN [employer] [address] [place] [phone] Assigned PCP 06/20/22 06/26/22 Kristina Dewey, PhD [address] [place], [place] [address] Psychologist Neuropsychology 01/04/24 Rebeka Bal, [facility] Community Health Worker 08/15/2408/04 Tianna Cooper, [facility] Lead Kitchen Worker 08/16/24 documented as of this encounter
--- OUTSIDE RECORDS SUMMARY | 2024-12-02 16:51 | XMS_ITS | Encounter Summary ---
Author Organization [place] Address [facility] [place] [address] Care Team Providers Care Field Operator Name Role Phone Manish Romero MD Primary Care Provider + [phone] Manish Romero MD Unavailable [phone] Manish Romero MD Unavailable [phone] Zhang Bee Unavailable Unavailable Iraj Adair MD Unavailable Un available Obinna Ramirez MD Primary Care Provider [phone] Obinna Ramirez MD Unavailable Jessica Joel APRN [facility] Unavailable [phone] Kristina Dewey PhD Unavailable [phone] Rebeka Bal W Unavailable [phone] Tianna Cooper [facility] Unavailable [phone] Encounter Details Date Type Department Care Team (Late st Contact Info) Description 04/12/2015 [facility] Medical Advice [facility] [address] [place] [address] [place] [address] [place] [address] Social History Tobacco Use Types Packs/Day Years Used Date Smoking Tobacco: Former Smokeless Tobacco: Never Alcohol Use Standard Drinks/Week Comments Yes 0 (1 standard drink = 0.6 oz pur e alcohol) Sex and Gender Information Value Date Recorded Sex Assigned at Not on file 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 PHARMACIST MANAGER Gender Identity Not on file Sexual Orientation Not on file documented as of this encounter Plan of Treatment Not on file documented as of this encounter Visit Diagnoses Not on filedocumented in this encounter Additional Health Concerns Infection Onset Date Last Indicated Resolved Time COVID-19 12/26/2022 12/28/2022 01/16/2023 11:3 9 PM CDT documented as of this encounter Care Teams Field Operator Relationship Specialty Start Date End Date Manish Romero MD PCP - General Family Practice 01/22/15 06/22/22 [place] [address] [place] [address] PCP - Assigned PCP 01/20/15 12/06/18 [place] [address] [place] [address] PCP - General Family Medicine 06/23/22 [place] [address] [place] [address] Assigned PCP 01/20/15 06/19/22 Zhang Bee Personal Advocate & Liaison (PAL) 03/24/21 01/26/22 Iraj Adair MD Assigned Heart and Vascular Provider 12/21/21 06/18/23 [place] [address] [place] [address] Assigned PCP 06/27/22 Jessica Joel APRN COAT FINISHER [address] [place] [address] Assigned PCP 06/20/22 06/26/22 Kristina Dewey, PhD [address] [place], [place] [address] Psychologist Neuropsychology 01/04/24 Rebeka Bal, Rashid Community Health Worker 08/15/2408/04 Tianna Cooper, [facility] Lead Cleaning Porter 08/16/24 documented as of this encounter
--- OUTSIDE RECORDS SUMMARY | 2024-12-02 16:51 | XMS_ITS | Encounter Summary ---
Author Organization [place] Address [address] [facility] [place] [address] Care Team Providers Care Middle School Counselor Name Role Phone Obinna Ramirez MD Primary Care Provider Obinna Ramirez MD Unavailable Kristina Dewey PhD Unavailable Rebeka Bal [facility] Unavailable [phone] Tianna Cooper [facility] Unavailable Encounter Details Date Type Department Care Team (Late st Contact Info) Description 07/05/2023 MyC Medical Advice [facility] [address] [place] [address] [place] [address] [place] [address] Social History Tobacco Use Types Packs/Day Years [...] week 06/02/2023 How often do you attend chur ch or latter day services? More than 4 times per year 06/02/2023 Do you belong to any clubs o r organizations such as anabaptist groups, unions, fraternal or athletic groups, or [...] 06/02/2023 PHQ-2 Answer Date Recorded PHQ-2 Score 0 06/02/2023 [facility] - Occupational [...] place to sleep or slept in a usp (including now)? 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 Gender Identity Not on file Sexual Orientation Not on file documented as of this encounter Plan of Treatment Not on file documented as of this encounter Visit Diagnoses Not on filedocumented in this encounter Additional Health Concerns Assessment Noted Time PHQ-9 Depression Total Score: 9 06/02/20 23 11:04 AM CDT documented as of this encounter Care Teams Middle School Counselor Relationship Specialty [place] [address] [place] [address] PCP - General Family Medicine 06/23/22 [place] [address] [place] [address] Assigned PCP 06/27/22 Kristina Dewey, PhD [address] [place] [address] Psychologist Neuropsychology 01/04/24 Rebeka Bal CHW Community Health Worker 08/15/2408/04 Tianna Cooper [facility] Lead Oracle Scm Consultant 08/16/24 documented as of this encounter
--- OUTSIDE RECORDS SUMMARY | 2024-12-02 16:51 | XMS_ITS | Encounter Summary ---
Author Organization [place] Address [facility] [place] [address] Care Team Providers Care Office Assistance Name Role Phone Manish Romero MD Primary Care Provider [phone] Manish Romero MD Unavailable [phone] Zhang Bee Unavailable Unavailable Iraj Adair MD Unavailable Un available Obinna Ramirez MD Primary Care Provider Obinna Ramirez MD Unavailable Jessica Joel APRN ROLLED GOLD PLATER Unavailable [phone] Kristina Dewey PhD Unavailable [phone] [address]be[address] [facility] Unavailable [phone] Tianna Cooper [facility] Unavailable [phone] Reason for Visit * Reason Onset Date Comments MyChart Communication 10/25/2020 Encounter Details Date Type Department Care Team (Late st Contact Info) Description 10/25/2020 MyC Medical Advice [facility] [address] [place] [address] [place] [address] [place] [address] MyChart Communication Social History Tobacco Use Types Packs/Day Years Used Date Smoking Tobacco: Former Smokeless Tobacco: Never Alcohol Use Standard Drinks/Week Comments Yes 0 (1 standard drink = 0.6 oz pur e alcohol) 2 glasses of trisha a night PHQ-2 Answer Date Recorded PHQ-2 Score 5 07/11/2020 Sex and Gender Information Value Date Recorded Sex Assigned at Not on file 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 No / Unsure 10/18/2020 2:53 PM EXECUTIVE CHAIRMAN OF THE BOARD documented as of this encounter Miscellaneous Notes * Telephone Encounter - Angelo Tran MA - 10/28/2020 7:[address] Romero, please advise. Notified patient that I'll route message to you for lab interpretation. Angelo Tran RESEARCH SCIENTIST ([facility]) UTIVE CHAIRMAN OF THE BOARD documented in this encounter Plan of Treatment Not on file documented as of this encounter Visit Diagnoses Not on filedocumented in this encounter Additional Health Concerns Infection Onset Date Last Indicated Resolved Time COVID-19 12/26/2022 12/28/2022 01/16/2023 11:3 9 PM CDT Assessment Noted Time PHQ-9 Depression Total Score: 20 020 8:52 AM CDT documented as of this encounter Care Teams Office Assistance Relationship Specialty Start Date End Date Manish Romero MD PCP - General Family Practice 01/22/15 06/22/22 [place] [address] [place] [address] PCP - General Family Medicine 06/23/22 [place] [address] [place] [address] Assigned PCP 01/20/15 06/19/22 Zhang Bee Personal Advocate & Liaison (PAL) 03/24/21 01/26/22 Iraj Adari MD Assigned Heart and Vascular Provider 12/21/21 06/18/23 [place] [address] [place] [address] Assigned PCP 06/27/22 Jessica Joel APRN ROLLED GOLD PLATER [address] [place] [phone] Assigned PCP 06/20/22 06/26/22 Kristina Dewey, PhD [address] [place] [address] Psychologist Neuropsychology 01/04/24 Rebeka Bal, [facility] Community Health Worker 08/15/2408/04 Tianna Cooper, [facility] Lead Check [place] 08/16/24 documented as of this encounter
--- OUTSIDE RECORDS SUMMARY | 2024-12-02 16:51 | XMS_ITS | Encounter Summary ---
Author Organization [place] Address [facility] [place] [address] Care Team Providers Care Director Of Corporate Responsibility Name Role Phone Manish Romero MD Primary Care Provider + [phone] Manish Romero MD Unavailable [phone] Manish Romero MD Unavailable [phone] Zhang Bee Unavailable Unavailable Iraj Adair MD Unavailable Un available Obinna Ramirez MD Primary Care Provider Obinna Ramirez MD Unavailable Jessica Joel APRN WHALE TRAINER Unavailable [phone] Kristina Dewey PhD Unavailable [phone] Rebeka Bal W Unavailable [phone] Tianna Cooper [facility] Unavailable [phone] Encounter Details Date Type Department Care Team (Late st Contact Info) Description 04/03/2015 MyC Medical Advice [facility] [address] [place] [address] Noemi Gray APRN WHALE TRAINER [address] [place] [address] Social History Tobacco Use Types Packs/Day Years Used Date Smoking Tobacco: Former Smokeless Tobacco: Never Alcohol Use Standard Drinks/Week Comments Yes 0 (1 standard drink = 0.6 oz pur e alcohol) Sex and Gender Information Value Date Recorded Sex Assigned at Not on file 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 Gender Identity Not on file Sexual Orientation Not on file documented as of this encounter Plan of Treatment Not on file documented as of this encounter Visit Diagnoses Not on filedocumented in this encounter Additional Health Concerns Infection Onset Date Last Indicated Resolved Time COVID-19 12/26/2022 12/28/2022 01/16/2023 11:3 9 PM CDT documented as of this encounter Care Teams Director Of Corporate Responsibility Relationship Specialty Start Date End Date Manish Romero MD PCP - General Family Practice 01/22/15 06/22/22 [place] [address] [place] [address] PCP - Assigned PCP 01/20/15 12/06/18 [place] [address] [place] [address] PCP - General Family Medicine 06/23/22 [place] [address] [place] [address] Assigned PCP 01/20/15 06/19/22 Zhang Bee Personal Advocate & Liaison (PAL) 03/24/21 01/26/22 Iraj Adair MD Assigned Heart and Vascular Provider 12/21/21 06/18/23 [place] [address] [place] [address] Assigned PCP 06/27/22 Jessica Joel APRN WHALE TRAINER [address] [place] [address] Assigned PCP 06/20/22 06/26/22 Kristina Dewey, PhD [address] [place], [place] [address] Psychologist Neuropsychology 01/04/24 Rebeka Bal, Rashid Community Health Worker 08/15/2408/04 Tianna Cooper, [facility] Lead Diesel Dinkey Engineer 08/16/24 documented as of this encounter
--- OUTSIDE RECORDS SUMMARY | 2024-12-02 16:51 | XMS_ITS | Encounter Summary ---
Author Organization [place] Address [facility] [place] [address] Care Team Providers Care Derrick Builder Name Role Phone Manish Romero MD Primary Care Provider [phone] Manish Romero MD Unavailable [phone] Zhang Bee Unavailable Unavailable Iraj Adair MD Unavailable Un available Obinna Ramirez MD Primary Care Provider [phone] Obinna Ramirez MD Unavailable Jessica Joel APRN CEMENT TILE MAKER Unavailable Kristina Dewey PhD Unavailable [phone] Rebeka Bal [facility] Unavailable [phone] Tianna Cooper [facility] Unavailable [phone] Reason for Visit * Reason Onset Date Comments MyChart Communication 03/27/2020 Encounter Details Date Type Department Care Team (Late st Contact Info) Description 03/27/2020 MyC Medical Advice [facility] [address] [place] [address] [place] [address] [place] [address] MyChart Communication Social History Tobacco Use Types Packs/Day Years Used Date Smoking Tobacco: Former Smokeless Tobacco: Never Alcohol Use Standard Drinks/Week Comments Yes 0 (1 standard drink = 0.6 oz pur e alcohol) a jug of trisha a week PHQ-2 Answer Date Recorded PHQ-2 Score 0 10/13/2018 Sex and Gender Information Value Date Recorded Sex Assigned at Not on file 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 No / Unsure 03/26/2020 9:41 AM CDT documented as of this encounter Plan of Treatment Not on file documented as of this encounter Visit Diagnoses Not on filedocumented in this encounter Additional Health Concerns Infection Onset Date Last Indicated Resolved Time COVID-19 12/26/2022 12/28/2022 01/16/2023 11:3 9 PM CDT documented as of this encounter Care Teams Derrick Builder Relationship Specialty Start Date End Date Manish Romero MD PCP - General Family Practice 01/22/15 06/22/22 [place] [address] [place] [address] PCP - General Family Medicine 06/23/22 [place] [address] [facility] [place] [address] Assigned PCP 01/20/15 06/19/22 Zhang Bee Personal Advocate & Liaison (PAL) 03/24/21 01/26/22 Iraj Adair MD Assigned Heart and Vascular Provider 12/21/21 06/18/23 [place] [address] [place] [address] Assigned PCP 06/27/22 Jessica Joel APRN CEMENT TILE MAKER [address] [facility] [phone] Assigned PCP 06/20/22 06/26/22 Kristina Dewey, PhD [address] [place], [place] [address] Psychologist Neuropsychology 01/04/24 Rebeka Bal, Rashid Community Health Worker 08/15/2408/04 Tianna Cooper, [facility] Lead Residence Director 08/16/24 documented as of this encounter
--- OUTSIDE RECORDS SUMMARY | 2024-12-02 16:51 | XMS_ITS | Encounter Summary ---
Author Organization [place] Address [facility] [place] [address] Care Team Providers Care Box Car Checker Name Role Phone Manish Romero MD Primary Care Provider [phone] Manish Romero MD Unavailable [phone] Zhang Bee Unavailable Unavailable Iraj Adair MD Unavailable Un available Obinna Ramirez MD Primary Care Provider [phone] Obinna Ramirez MD Unavailable Jessica Joel APRN FIBERGLASS INSULATION INSTALLER Unavailable [phone] Kristina Dewey PhD Unavailable [phone] Rebeka Bal [facility] Unavailable [phone] Tianna Cooper [facility] Unavailable [phone] Encounter Details Date Type Department Care Team (Late st Contact Info) Description 03/18/2021 MyC Medical Advice [facility] [address] [place] [address] [place] [address] [place] [address] Social History Tobacco Use Types [...] on file 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 SAFETY ENGINEER Gender Identity Not on file Sexual Orientation [...] documented as of this encounter Care Teams Box Car Checker Relationship Specialty Start Date End Date Manish Romero MD PCP - General Family Practice 01/22/15 06/22/22 [place] [address] [facility] [place] [address] PCP - General Family Medicine 06/23/22 [place] [address] [facility] [place] [address] Assigned PCP 01/20/15 06/19/22 Zhang Bee Personal Advocate & Liaison (PAL) 03/24/21 01/26/22 Iraj Adair MD Assigned Heart and Vascular Provider 12/21/21 06/18/23 [place] [address] [place] [address] Assigned PCP 06/27/22 Jessica Joel APRN FIBERGLASS INSULATION INSTALLER [address] [place] [phone] Assigned PCP 06/20/22 06/26/22 Kristina Dewey, PhD [address] [place], [place] [address] Psychologist Neuropsychology 01/04/24 Rebeka Bal, [facility] Community Health Worker 08/15/2408/04 Tianna Cooper, [facility] Lead Returned Goods Repairer 08/16/24 documented as of this encounter
--- OUTSIDE RECORDS SUMMARY | 2024-12-02 16:51 | XMS_ITS | Encounter Summary ---
Author Organization [place] Address [facility] [place] [address] Care Team Providers Care Blister Packaging Machine Operator Name Role Phone Manish Romero MD Primary Care Provider [phone] Manish Romero MD Unavailable [phone] Zhang Bee Unavailable Unavailable Iraj Adair MD Unavailable Un available Obinna Ramirez MD Primary Care Provider Obinna Ramirez MD Unavailable Jessica Joel APRN TANK CAR RECONDITIONER Unavailable [phone] Kristina Dewey PhD Unavailable [phone] Rebeka Bal [facility] Unavailable [phone] 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 Gender Identity Not on file Sexual [...] documented as of this encounter Care Teams Blister Packaging Machine Operator Relationship Specialty Start Date End Date Manish Romero MD PCP - General Family Practice 01/22/15 06/22/22 [place] [address] [place] [address] PCP - General Family Medicine 06/23/22 [place] [address] [place] [address] Assigned PCP 01/20/15 06/19/22 Zhang Bee Personal Advocate & Liaison (PAL) 03/24/21 01/26/22 Iraj Adair MD Assigned Heart and Vascular Provider 12/21/21 06/18/23 [place] [address] [place] [address] Assigned PCP 06/27/22 Jessica Joel APRN TANK CAR RECONDITIONER [address] [place] [phone] Assigned PCP 06/20/22 06/26/22 Kristina Dewey, PhD [address] [place] [address] Psychologist Neuropsychology 01/04/24 Rebeka Bal, Rashid Community Health Worker 08/15/2408/04 Tianna Cooper, [facility] Lead Business Development Manager 08/16/24 documented as of this encounter
--- OUTSIDE RECORDS SUMMARY | 2024-12-02 16:51 | XMS_ITS | Encounter Summary ---
Author Organization [place] Address [address] [place] [address] Care Team Providers Care Tax Manager Name Role Phone Obinna Ramirez MD Primary Care Provider [phone] Obinna Ramirez MD Unavailable Kristina Dewey PhD Unavailable Rebeka Bal CHW Unavailable [phone] Tianna Cooper [facility] Unavailable Reason for Visit * Reason Onset Date Comments Appointment 12/23/2023 Encounter Details Date Type Department Care Team (Late st Contact Info) Description 12/23/2023 Telephone [facility] Neuropsychology [address] [address] Mitesh Coats, PhD [address] [address] Appointment Social History Tobacco Use Types Packs/Day Years [...] 06/02/2023 How often do you attend chur or amish services? More than 4 times per year 06/02/2023 Do you belong to any clubs o r organizations such as adventism groups, unions, fraternal or athletic groups, or [...] PHQ-2 Answer Date Recorded PHQ-2 Score 0 12/21/2023 [facility] - Occupational Stress Questionnaire Answer Date [...] place to sleep or slept in a intermediate (including now)? 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 Patient answered phone but states is the one to reschedule with but she is currently in the hospital. Patient prefers call back in a few days. Action Taken: Other: TE in chart Travel Screening: Not Applicable documented in this encounter Plan of Treatment Not on file documented as of this encounter Visit Diagnoses Not on filedocumented in this encounter Additional Health Concerns Assessment Noted Time PHQ-9 Depression Total Score: 0 12/21/19 9:42 AM CDT documented as of this encounter Care Teams Tax Manager Relationship Specialty [place] [address] [place] [address] PCP - General Family Medicine 06/23/22 [place] [address] [place] [address] Assigned PCP 06/27/22 Kristina Dewey, PhD [address] [place], [place] [address] Psychologist Neuropsychology 01/04/24 Rebeka Bal, [facility] Community Health Worker 08/15/2408/04 Tianna Cooper, [facility] Lead Snack Bar Attendant 08/16/24 documented as of this encounter
--- OUTSIDE RECORDS SUMMARY | 2024-12-02 16:51 | XMS_ITS | Encounter Summary ---
Author Organization [place] Address [facility] [place] [address] Care Team Providers Care Organizational Psychologist Name Role Phone Manish Romero MD Primary Care Provider [phone] Manish Romero MD Unavailable [phone] Zhang Bee Unavailable Unavailable Iraj Adair MD Unavailable Un available Obinna Ramirez MD Primary Care Provider [phone] Obinna Ramirez MD Unavailable Jessica Joel APRN HOLISTIC PULSER Unavailable [phone] Kristina Dewey PhD Unavailable [phone] Rebeka Bal [facility] Unavailable [phone] Tianna Cooper [facility] Unavailable [phone] Encounter Details Date Type Department Care Team (Late st Contact Info) Description 07/05/2020 MyC Medical Advice [facility] [address] [place] [address] Robyn Rowan RN Social History Tobacco Use Types Packs/Day [...] on file 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 PATCH WASHER Gender Identity Not on file Sexual Orientation [...] documented as of this encounter Care Teams Organizational Psychologist Relationship Specialty Start Date End Date Manish Romero MD PCP - General Family Practice 01/22/15 06/22/22 [place] [address] [place] [address] PCP - General Family Medicine 06/23/22 [place] [address] [facility] [place] [place] [address] Assigned PCP 01/20/15 06/19/22 Zhang Bee Personal Advocate & Liaison (PAL) 03/24/21 01/26/22 Iraj Adair MD Assigned Heart and Vascular Provider 12/21/21 06/18/23 [place] [address] [place] [address] Assigned PCP 06/27/22 Jessica Joel APRN HOLISTIC PULSER [address] [place] [address] Assigned PCP 06/20/22 06/26/22 Kristina Dewey, PhD [address] [place] [address] Psychologist Neuropsychology 01/04/24 Rebeka Bal CHW Community Health Worker 08/15/2408/04 Tianna Cooper, [facility] Lead Webbing Inspector 08/16/24 documented as of this encounter
--- OUTSIDE RECORDS SUMMARY | 2024-12-02 16:51 | XMS_ITS | Encounter Summary ---
Author Organization [place] Address [address] [place] [address] Care Team Providers Care Paint Line Operator Name Role Phone Obinna Ramirez MD Primary Care Provider Obinna Ramirez MD Unavailable Kristina Dewey PhD Unavailable [phone] Reason for Visit * Reason Comments Medication Refill Encounter Details Date Type Department Care Team (Late st Contact Info) Description 10/20/[address] [address] [place] [address] [place] [address] Medication Refill Social History Tobacco Use Types Packs/Day Years [...] week 08/21/2024 How often do you attend [facility] or judaism services? 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 Author [facility] Tianna Cooper, [facility] Note: Barriers: Declining health Strengths: In agreement and seeking additional support Patient expressed understanding of goal: Yes Action steps to achieve this goal: 1. I will continue to rely on my family 2. I will follow-up with [facility] to coordinate in-home hospice eval 3. I will update critical care nurse specialist if additional support and assistance needed and if not eligible for hospice documented as of this encounter Visit Diagnoses Diagnosis Hypothyroidism, unspecified type documented in this encounter Additional Health Concerns Active Problems Noted Date Diagnosed Date Hopsice Eval 08/18/2024 Assessment Noted Time PHQ-9 Depression Total Score: 18 024 11:43 AM CDT documented as of this encounter Care Teams Paint Line Operator Relationship Specialty Start [place] [address] [place] [address] PCP - General Family Medicine 06/23/22 [place] [address] [place] [address] Assigned PCP 06/27/22 Kristina Dewey, PhD [address] [place] [address] Psychologist Neuropsychology 01/04/24 documented as of this encounter
--- OUTSIDE RECORDS SUMMARY | 2024-12-02 16:51 | XMS_ITS | Encounter Summary ---
Author Organization [place] Address [address] [place] [address] Care Team Providers Care Heel Sander Name Role Phone Obinna Ramirez MD Primary Care Provider Obinna Ramirez MD Unavailable Kristina Dewey PhD Unavailable [phone] Reason for Visit * Reason Comments Medication Refill Encounter Details Date Type Department Care Team (Late st Contact Info) Description 11/29/[address] [address] [place] [address] [place] [address] Medication Refill Social History Tobacco [...] week 08/21/2024 How often do you attend [facility] or zoroastrianism services? 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 Author Hospice Eval Care Plan [facility] No Tianna Cooper, [facility] Note: Barriers: Declining health Strengths: In agreement and seeking additional support Patient expressed understanding of goal: Yes Action steps to achieve this goal: 1. I will continue to rely on my family 2. I will follow-up with [facility] to coordinate in-home hospice eval 3. I will update director of career services if additional support and assistance needed and if not eligible for hospice documented as of this encounter Visit Diagnoses Diagnosis Moderate major depression (H) Major depressive disorder, single episode, moderate documented in this encounter Additional Health Concerns Active Problems Noted Date Diagnosed Date Hopsice Eval 08/18/2024 Assessment Noted Time PHQ-9 Depression Total Score: 18 024 11:43 AM CDT documented as of this encounter Care Teams Heel Sander Relationship Specialty [place] [address] [place] [address] PCP - General Family Medicine 06/23/22 [place] [address] [place] [address] Assigned PCP 06/27/22 Kristina Dewey, PhD [address] [place] [address] Psychologist Neuropsychology 01/04/24 documented as of this encounter
--- OUTSIDE RECORDS SUMMARY | 2024-12-02 16:52 | XMS_ITS | Encounter Summary ---
Author Organization [place] Address [address] [place] [address] Care Team Providers Care Truck Repair Service Estimator Name Role Phone Iraj Adair MD Unavailable Un available Obinna Ramirez MD Primary Care Provider Obinna Ramirez MD Unavailable Kristina Dewey PhD Unavailable [phone] Rebeka Bal CHW Unavailable [phone] Tianna Cooper [facility] Unavailable [phone] Reason for Visit * Reason Onset Date Comments MyChart Communication 12/25/2022 Encounter Details Date Type Department Care Team (Latest Contact Info) Description 12/25/2022 MyC Medical Advice [facility] [id number] [place] [address] [place] [address] [place] [address] [id number] MyChart Communication Social History Tobacco Use Types Packs/Day Years Used Date Smoking Tobacco: Former Smokeless Tobacco: Never Alcohol Use Standard Drinks/Week Comments Not Currently 0 (1 standard drink = 0.6 oz pur e alcohol) 2 glasses of trisha a night PHQ-2 Answer Date Recorded PHQ-2 Score 3 05/07/2022 Sex and Gender Information Value Date Recorded Sex Assigned at Not on file 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 LOCAL 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 Jessica Alvarado RN documented in this encounter Plan of Treatment Not on file documented as of this encounter Visit Diagnoses Not on filedocumented in this encounter Additional Health Concerns Infection Onset Date Last Indicated Resolved Time COVID-19 12/26/2022 12/28/2022 01/16/2023 11:3 9 PM CDT Assessment Noted Time PHQ-9 Depression Total Score: 11 022 10:57 AM CDT documented as of this encounter Care Teams Truck Repair Service Estimator Relationship Specialty [place] [address] [place] [address] PCP - General Family Medicine 06/23/22 Iraj Adair MD Assigned Heart and Vascular Provider 12/21/21 06/18/23 [place] [address] [place] [address] Assigned PCP 06/27/22 Kristina Dewey, PhD [address] [place] [address] Psychologist Neuropsychology 01/04/24 Rebeka Bal Rashid Community Health Worker 08/15/2408/04 Tianna Cooper, [facility] Lead Broadband Technician 08/16/24 documented as of this encounter
--- OUTSIDE RECORDS SUMMARY | 2024-12-02 16:52 | XMS_ITS | Clinical Summary ---
Author Organization [facility] ([facility]) Address [address] [place] [address], [address] [place] [address] Phone Care Team Providers Care Blending Supervisor Name Role Phone VINAYAK ALATORRE, GABRIELLE Unavailable Unavailable GEORGES WOOD, CHAGO Unavailable Unavailpina [place] CH, YOVANY Unavailable Unavailable MAZIN RN, RHONDA Unavailable Unavailable SANTHOSH RN, JESSICA Unavailable Unavailable AUSTIN RN, STANFORD Unavailable Unavailable FLAVIO HCC, ROBERTO Unavailable Unavaila milton MANCILLA THROW OUT CLERK, RENUKA Unavailable Unavailable KARYN HCC, IRLANDA Unavailable Unavailable KARINA COUNCIL ON AGING DIRECTOR, ZAIDA Unavailable Unavailable Payers Payer Name Policy Type Policy Number Effective Date Expira tion Date MEDICARE HOSPICE - [facility] [id number] Problems Condition Name Condition Details Condition Category Status Onset Date Resolution Date Last Treatment Date Treating Clinician Comments CEREBROVASCU LAR DISEASE, UNSPECIFIED Active 2023-10 00:00: 00 VITAMIN B12 DEFICIENCY ANEMIA, UNSPECIFIED Active 2023-10 00:00: 00 HYPOTHYROIDI SM, UNSPECIFIED Active 2023-10 00:00: 00 PREDIABETES Active 2023-10 00:00: 00 ROSACEA, UNSPECIFIED Active 2023-10 00:00: 00 REPEATED FALLS Active 2023-10 00:00: 00 Allergies, Adverse Reactions, Alerts Allergy Name Allergy Type Status Severity Reaction(s) Onset Date Inactive Date Treating Clinician Comments NKA Propensity to adverse reactions Active 2024-08 21:21:0 5 Medications Ordered Medication Name Filled Medication Name Start Date Stop Date Current Medication? Ordering Clinician Indication Dosage Frequency Signature (SIG) Comments Components acetaminoph en 650 mg rectal suppository 2023-10 00:00: 00 Yes [id number] MILD PAIN OR FEVER 1 supposi tory, rectal EVERY 4 HOURS 1 suppositor y, rectal EVERY 4 HOURS (route: rectal) Med Classific ation: Analgesic , Anti-infl ammatory or Antipyret ic Aspirin Childrens 81 mg chewable tablet 2023-10 00:00: 00 10-05 23:59 :00 No [id number] CVA 1 tablet DAILY 1 tablet DAILY (route: oral) Med Classific ation: Hematolog ical Agents atorvastati n 40 mg tablet 2023-10 00:00: 00 10-05 23:59 :00 No [id number] CHOLESTEROL 1 tablet DAILY 1 tablet DAILY (route: oral) Med Classific ation: Cardiovas cular Therapy Agents bisacodyl 10 mg rectal suppository 2023-10 00:00: 00 Yes [id number] CONSTIPATIO N 1 supposi tory, rectal DAILY 1 suppositor y, rectal DAILY (route: rectal) Med Classific ation: Gastroint estinal Therapy Agents Boost Kid Essentials 0.04 gram-1.5 kcal/mL oral liquid 2023-10 00:00: 00 Yes [id number] SUPPLEMENT Per instruc tions 3 TIMES DAILY Per instructio ns 3 TIMES DAILY (route: oral) Med Classific ation: Electroly te Balance-N utritiona l Products bupropion HCl XL 300 mg 24 hr tablet, extended release 2023-10 00:00: 00 10-05 23:59 :00 No [id number] DEPRESSION 1 tablet DAILY 1 tablet DAILY (route: oral) Med Classific ation: Central Nervous System Agents colchicine 0.6 mg tablet 2023-10 00:00: 00 Yes [id number] GOUT Per instruc tions NEEDED Per instructio ns NEEDED (route: oral) Med Classific ation: Gout and Hyperuric emia Therapy donepezil 5 mg tablet 2023-10 00:00: 00 10-05 23:59 :00 No [id number] DEMENTIA 1 tablet BEDTIME 1 tablet BEDTIME (route: oral) Med Classific ation: Cognitive Disorder Therapy fluticasone propionate 50 mcg/actuati on nasal spray,suspe nsion 2023-10 00:00: 00 Yes [id number] SINUSITIS 2 spray DAILY 2 spray DAILY (route: nasal) Med Classific ation: Respirato ry Therapy Agents haloperidol lactate 2 mg/mL oral concentrate 2023-10 00:00: 00 Yes [id number] AGITATION 0.5 mg EVERY 6 HOURS 0.5 mg EVERY 6 HOURS (route: oral) Med Classific ation: Central Nervous System Agents hyoscyamine 0.125 mg sublingual tablet 2023-10 00:00: 00 Yes [id number] SECRETIONS 1 tablet EVERY 4 HOURS 1 tablet EVERY 4 HOURS (route: sublingual ) Med Classific ation: Gastroint estinal Therapy Agents levothyroxi ne 50 mcg tablet 2023-10 00:00: 00 Yes [id number] THYROID 1 tablet DAILY 1 tablet DAILY (route: oral) Med Classific ation: Endocrine lorazepam 0.5 mg tablet 2023-10 00:00: 00 Yes [id number] ANXIETY OR NAUSEA 1 tablet EVERY 4 HOURS 1 tablet EVERY 4 HOURS (route: oral) Med Classific ation: Central Nervous System Agents mecobalamin (vitamin B12) 1,000 mcg chewable tablet 2023-10 00:00: 00 Yes [id number] VITAMIN B12 DEFICIENCY 1 tablet DAILY 1 tablet DAILY (route: oral) Med Classific ation: Electroly te Balance-N utritiona l Products mirtazapine 30 mg tablet 2023-10 00:00: 00 Yes [id number] WT LOSS 1 tablet BEDTIME 1 tablet BEDTIME (route: oral) Med Classific ation: Central Nervous System Agents morphine concentrate 100 mg/5 mL (20 mg/mL) oral solution 2023-10 00:00: 00 Yes [id number] PAIN OR SHORTNESS OF BREATH 2.5 mg EVERY 3 HOURS 2.5 mg EVERY 3 HOURS (route: oral) Med Classific ation: Analgesic , Anti-infl ammatory or Antipyret ic omeprazole 40 mg capsule,del ayed release 2023-10 00:00: 00 Yes [id number] GERD 1 capsule DAILY 1 capsule DAILY (route: oral) Med Classific ation: Gastroint estinal Therapy Agents prochlorper azine maleate 10 mg tablet 2023-10 00:00: 00 Yes [id number] NAUSEA AND VOMITING 1 tablet EVERY 6 HOURS 1 tablet EVERY 6 HOURS (route: oral) Med Classific ation: Gastroint estinal Therapy Agents sildenafil (pulmonary hypertensio n) 20 mg tablet 2023-10 00:00: 00 Yes [id number] ED 1 tablet DAILY 1 tablet DAILY (route: oral) Med Classific ation: Cardiovas cular Therapy Agents thiamine HCl (vitamin B1) 50 mg tablet 2023-10 00:00: 00 Yes [id number] ALCOHOL DEPENDENCE 2 tablet DAILY 2 tablet DAILY (route: oral) Med Classific ation: Electroly te Balance-N utritiona l Products venlafaxine 75 mg tablet 2023-10 00:00: 00 Yes [id number] MAJOR DEPRESSIVE DISORDER 1 tablet DAILY 1 tablet DAILY (route: oral) Med Classific ation: Central Nervous System Agents venlafaxine ER 150 mg capsule,ext ended release 24 hr 2023-10 00:00: 00 Yes [id number] WT LOSS, MAJOR DEPRESSIVE DISORDER 1 capsule DAILY 1 capsule DAILY (route: oral) Med Classific ation: Central Nervous System Agents dexamethaso ne 4 mg tablet 2023-10 00:00: 00 Yes [id number] ANOREXIA 4 mg EVERY AM 4 mg EVER Y AM (route: oral) Med Classific ation: Endocrine ciprofloxac in 0.3 % eye drops 2023-10 00:00: 00 Yes [id number] LEFT EYE FOR CONJUNCTIVI TIS 1-2 drops 4 TIMES DAILY 1-2 drops 4 TIMES DAILY (route: ophthalmic (eye)) Med Classific ation: Ophthalmi c Agents bupropion HCl 75 mg tablet 10-05 00:00: 00 10-21 23:59 :00 No [id number] DEPRESSION Per instruc tions DAILY Per instructio ns DAILY (route: oral) Med Classific ation: Central Nervous System Agents Fleet Glycerin (Adult) rectal suppository 10-27 00:00: 00 10-27 23:59 :00 No [id number] CINSTIPATIO N 1 supposi tory, rectal DAILY 1 suppositor y, rectal DAILY (route: rectal) Med Classific ation: Gastroint estinal Therapy Agents ipratropium 0.5 mg-albutero l 3 mg (2.5 mg base)/3 mL nebulizatio n soln 10-27 00:00: 00 Yes [id number] SOB 3 mL 2 TIMES DAILY 3 mL 2 TIMES DAILY (route: inhalation ) Med Classific ation: Respirato ry Therapy Agents ipratropium 0.5 mg-albutero l 3 mg (2.5 mg base)/3 mL nebulizatio n soln 10-27 00:00: 00 Yes [id number] SOB 3 mL EVERY 4 HOURS 3 mL EVERY 4 HOURS (route: inhalation ) Med Classific ation: Respirato ry Therapy Agents oxygen gas for inhalation 10-27 00:00: 00 Yes [id number] SOB 2 Liter O2 - PRN 2 Liter O 2 - PRN (route: inhalation ) Alternate Route: O2 - NASAL CANNULA. Med Classific ation: Medical Supplies and Durable Medical Equipment (DME) Antifungal (miconazole ) 2 % topical cream 11-10 00:00: 00 Yes [id number] fungal infection Per instruc tions DAILY Per instructio ns DAILY (route: topical) Med Classific ation: Dermatolo gical Vital Signs Vital Name Observation Time Observation Value Commen ts Temperature 2024-12-01 12:12:00.000 97.5 [degF] Temperature 2024-11-29 20:41:00.000 98.7 [degF] Temperature 2024-11-22 13:08:00.000 97.5 [degF] Pulse 2024-12-01 12:12:00.000 81 /min Pulse 2024-11-29 20:41:00.000 9 /min Pulse 2024-11-22 13:08:00.000 94 /min Respirations 2024-12-01 12:12:00.000 16 /min Respirations 2024-11-29 20:41:00.000 16 /min Respirations 2024-11-22 13:08:00.000 18 /min Systolic Blood Pressure 2024-12-01 12:12:00.000 116 mm [Hg] Systolic Blood Pressure 2024-11-29 20:41:00.000 118 mm [Hg] Systolic Blood Pressure 2024-11-22 13:08:00.000 132 mm [Hg] Diastolic Blood Pressure 2024-12-01 12:12:00.000 76 mm [Hg] Diastolic Blood Pressure 2024-11-29 20:41:00.000 40 mm [Hg] Diastolic Blood Pressure 2024-11-22 13:08:00.000 83 mm [Hg] Encounters Start Date/Time End Date/Time Encounter Type Admission Type Attending [facility] Facility Care Department Encounter ID 2024-08-22 00:00:00 2025-02-17 00:00:00 Unknown RECERTIFICATIO Tosha SU, CHAGO [place], YOVANY RETANA, RHONDA TREVIZO, JESSICA AVILA, STANFORD MUNIZ , ROBERTO MANCILLA, RENUKA BOSS, AZIDA CRUZ [facility] [id number]
--- OUTSIDE RECORDS SUMMARY | 2024-12-02 16:52 | XMS_ITS | Encounter Summary ---
Author Organization [place] Address [address] [place] [address] Care Team Providers Care Quality Assurance Supervisor Body Name Role Phone Iraj Adair MD Unavailable Un available Obinna Ramirez MD Primary Care Provider [phone] Obinna Ramirez MD Unavailable Kristina Dewey PhD Unavailable [phone] Rebeka Bal CHW Unavailable [phone] Tianna Cooper END LATHE OPERATOR Unavailable [phone] Encounter Details Date Type Department Care Team (Late st Contact Info) Description 12/28/2022 MyC Medical Advice [facility] [address] [address] Dawna Lagunas MD [facility] [place], [place] [id number] Social History Tobacco Use Types Packs/Day Years [...] on file 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 LAYER UP Gender Identity Not on file Sexual Orientation [...] documented as of this encounter Care Teams Quality Assurance Supervisor Body Relationship Specialty [place] [address] [place] [address] PCP - General Family Medicine 06/23/22 Iraj Adair MD Assigned Heart and Vascular Provider 12/21/21 06/18/23 [place] [address] [place] [address] Assigned PCP 06/27/22 Kristina Dewey, PhD [address] [place], [place] [address] Psychologist Neuropsychology 01/04/24 Rebeka Bal CHW Community Health Worker 08/15/2408/04 Tianna Cooper, [facility] Lead Scale Installer 08/16/24 documented as of this encounter
--- OUTSIDE RECORDS SUMMARY | 2024-12-02 16:52 | XMS_ITS | Encounter Summary ---
Author Organization [place] Address [address] [place] [address] Care Team Providers Care Natural Gas Engineer Name Role Phone Iraj Adair MD Unavailable Un available Obinna Ramirez MD Primary Care Provider Obinna Ramirez MD Unavailable Kristina Dewey PhD Unavailable [phone] Rebeka Bal CHW Unavailable [phone] Tianna Cooper [facility] Unavailable [phone] Encounter Details Date Type Department Care Team (Late st Contact Info) Description 04/15/2023 MyC Medical Advice [address] [address] Mehran Montalvo DO [address] [place] [address] [id number] Social History Tobacco Use Types Packs/Day Years [...] on file 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 No / Unsure 04/05/2023 11:28 AM CDT documented as of this encounter Plan of Treatment Not on file documented as of this encounter Visit Diagnoses Not on filedocumented in this encounter Additional Health Concerns Assessment Noted Time PHQ-9 Depression Total Score: 11 022 10:57 AM CDT documented as of this encounter Care Teams Natural Gas Engineer Relationship Specialty [place] [address] [place] [address] PCP - General Family Medicine 06/23/22 Iraj Adair MD Assigned Heart and Vascular Provider 12/21/21 06/18/23 [place] [address] [place] [address] Assigned PCP 06/27/22 Kristina Dewey, PhD [address] [place], [place] [address] Psychologist Neuropsychology 01/04/24 Rebeka Bal CHW Community Health Worker 08/15/2408/04 Tianna Cooper, [facility] Lead Physicist [place] 08/16/24 documented as of this encounter
--- OUTSIDE RECORDS SUMMARY | 2024-12-02 16:52 | XMS_ITS | Encounter Summary ---
Author Organization [place] Address [facility] [place] [address] Care Team Providers Care Nougat Cutter Machine Name Role Phone Iraj Adair MD Unavailable Un available Obinna Ramirez MD Primary Care Provider [phone] Obinna Ramirez MD Unavailable Kristina Dewey PhD Unavailable [phone] Rebeka Bal CHW Unavailable [phone] Tianna Cooper [facility] Unavailable [phone] Encounter Details Date Type Department Care Team (Late st Contact Info) Description 07/13/2022 MyC Medical Advice [address] [address] Kiersten Love CMA Social History Tobacco Use Types Packs/Day Years [...] on file 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 No / Unsure 06/23/2022 2:04 PM CDT documented as of this encounter Plan of Treatment Not on file documented as of this encounter Visit Diagnoses Not on filedocumented in this encounter Additional Health Concerns Infection Onset Date Last Indicated Resolved Time COVID-19 12/26/2022 12/28/2022 01/16/2023 11:3 9 PM CDT Assessment Noted Time PHQ-9 Depression Total Score: 11 022 10:57 AM CDT documented as of this encounter Care Teams Nougat Cutter Machine Relationship Specialty Start [place] [address] [place] [address] PCP - General Family Medicine 06/23/22 Iraj Adair MD Assigned Heart and Vascular Provider 12/21/21 06/18/23 [place] [address] [place] [address] Assigned PCP 06/27/22 Kristina Dewey, PhD [address] [place], [place] [address] Psychologist Neuropsychology 01/04/24 Rebeka Bal CHW Community Health Worker 08/15/2408/04 Tianna Cooper, [facility] Lead Seismic Prospecting Supervisor 08/16/24 documented as of this encounter
--- OUTSIDE RECORDS SUMMARY | 2024-12-02 16:52 | XMS_ITS | Encounter Summary ---
Author Organization [place] Address [facility] [place] [address] Care Team Providers Care Aquatic Instructor Name Role Phone Manish Romero MD Primary Care Provider [phone] Manish Romero MD Unavailable [phone] Iraj Adair MD Unavailable Un available Obinna Ramirez MD Primary Care Provider [phone] Obinna Ramirez MD Unavailable Jessica Joel APRN COMPUTER SYSTEMS SECURITY ADMINISTRATOR Unavailable [phone] Kristina Dewey PhD Unavailable [phone] Rebeka Bal CHW Unavailable [phone] Tianna Cooper [facility] Unavailable [phone] Encounter Details Date Type Department Care Team (Late st Contact Info) Description 05/07/2022 MyC Medical Advice [address] [address] Adry Cervantes, [facility] Social History Tobacco Use Types Packs/Day Years [...] on file 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 COST SPECIALIST Gender Identity Not on file Sexual Orientation [...] documented as of this encounter Care Teams Aquatic Instructor Relationship Specialty Start Date End Date Manish Romero MD PCP - General Family Practice 01/22/15 06/22/22 [place] [address] [place] [address] PCP - General Family Medicine 06/23/22 [place] [address] [place] [address] Assigned PCP 01/20/15 06/19/22 [place] [address] [place] [address] Assigned Heart and Vascular Provider 12/21/21 06/18/23 [place] [address] [place] [address] Assigned PCP 06/27/22 Jessica Joel APRN [facility] [address] [place] [id number] Assigned PCP 06/20/22 06/26/22 Kristina Dewey, PhD [address] [place] [address] Psychologist Neuropsychology 01/04/24 Rebeka Bal, Rashid Community Health Worker 08/15/2408/04 Tianna Cooper, [facility] Lead Lime Supervisor 08/16/24 documented as of this encounter
--- OUTSIDE RECORDS SUMMARY | 2024-12-02 16:52 | XMS_ITS | Encounter Summary ---
Author Organization [place] Address [facility] [place] [address] Care Team Providers Care Wellness Instructor Name Role Phone Manish Romero MD Primary Care Provider [phone] Manish Romero MD Unavailable [phone] Zhang Bee Unavailable Unavailable Iraj Adair MD Unavailable Un available Obinna Ramirez MD Primary Care Provider [phone] Obinna Ramirez MD Unavailable Jessica Joel APRN CHIEF TECHNICIAN Unavailable [phone] Kristina Dewey PhD Unavailable [phone] Rebeka Bal [facility] Unavailable [phone] Tianna Cooper [facility] Unavailable [phone] Encounter Details Date Type Department Care Team (Late st Contact Info) Description 02/27/2020 MyC Medical Advice [facility] [address] [place] [address] [place] [address] [place] [address] Social History Tobacco Use Types [...] on file 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 No / Unsure 02/23/2020 9:43 AM CDT documented as of this encounter Plan of Treatment Not on file documented as of this encounter Visit Diagnoses Not on filedocumented in this encounter Additional Health Concerns Infection Onset Date Last Indicated Resolved Time COVID-19 12/26/2022 12/28/2022 01/16/2023 11:3 9 PM CDT documented as of this encounter Care Teams Wellness Instructor Relationship Specialty Start Date End Date Manish Romero MD PCP - General Family Practice 01/22/15 06/22/22 [place] [address] [place] [address] PCP - General Family Medicine 06/23/22 [place] [address] [place] [address] Assigned PCP 01/20/15 06/19/22 Zhang Bee Personal Advocate & Liaison (PAL) 03/24/21 01/26/22 Iraj Adair MD Assigned Heart and Vascular Provider 12/21/21 06/18/23 [place] [address] [place] [address] Assigned PCP 06/27/22 Jessica Joel APRN CHIEF TECHNICIAN [address] [place] [address] Assigned PCP 06/20/22 06/26/22 Kristina Dewey, PhD [address] [place], [place] [address] Psychologist Neuropsychology 01/04/24 Rebeka Bal, [facility] Community Health Worker 08/15/2408/04 Tianna Cooper, [facility] Lead Extrusion Press Operator 08/16/24 documented as of this encounter
--- OUTSIDE RECORDS SUMMARY | 2024-12-02 16:52 | XMS_ITS | Encounter Summary ---
Author Organization [place] Address [facility] [place] [address] Care Team Providers Care Lot Porter Name Role Phone Manish Romero MD Primary Care Provider [phone] Manish Romero MD Unavailable [phone] Zhang Bee Unavailable Unavailable Iraj Adair MD Unavailable Un available Obinna Ramirez MD Primary Care Provider Obinna Ramirez MD Unavailable Jessica Joel APRN ACTIVITY AIDE Unavailable Kristina Dewey PhD Unavailable [phone] Rebeka Bal [facility] Unavailable [phone] Tianna Cooper [facility] Unavailable [phone] Reason for Visit * Reason Onset Date Comments Refill Request 03/23/2020 Encounter Details Date Type Department Care Team (Late st Contact Info) Description 03/23/2020 MyC Refill [facility] [id number] [place] [id number] [place] [address] [place] [address] Refill Request Social History Tobacco Use Types Packs/Day Years Used Date Smoking Tobacco: Former Smokeless Tobacco: Never Alcohol Use Standard Drinks/Week Comments Yes 0 (1 standard drink = 0.6 oz pur e alcohol) a jug of trisha a week PHQ-2 Answer Date Recorded PHQ-2 Score 0 10/13/2018 Sex and Gender Information Value Date Recorded Sex Assigned at Not on file 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 No / Unsure 03/26/2020 9:41 AM CDT documented as of this encounter Miscellaneous Notes * Telephone Encounter - Robyn Rowan RN - 03/25/2020 10:02 AM CDT Routing refill request to provider for review/approval because: No pHQ on file- sent my chart needs visit Robyn Rowan RN Prescription approved per G Refill Protocol. For omeprazole Robyn Rowan RN documented in this encounter Plan of Treatment Not on file documented as of this encounter Visit Diagnoses Diagnosis Moderate major depression (H) Major depressive disorder, single episode, moderate Black stool Nonspecific abnormal finding in stool contents Abdominal pain, epigastric documented in this encounter Additional Health Concerns Infection Onset Date Last Indicated Resolved Time COVID-19 12/26/2022 12/28/2022 01/16/2023 11:3 9 PM CDT documented as of this encounter Care Teams Lot Porter Relationship Specialty Start Date End Date Manish Romero MD PCP - General Family Practice 01/22/15 06/22/22 [place] [address] [place] [address] PCP - General Family Medicine 06/23/22 [place] [address] [place] [address] Assigned PCP 01/20/15 06/19/22 Zhang Bee Personal Advocate & Liaison (PAL) 03/24/21 01/26/22 Iraj Adair MD Assigned Heart and Vascular Provider 12/21/21 06/18/23 [place] [address] [place] [address] Assigned PCP 06/27/22 Jessica Joel APRN ACTIVITY AIDE [address] [place] [id number] Assigned PCP 06/20/22 06/26/22 Kristina Dewey, PhD [address] [place] [id number] Psychologist Neuropsychology 01/04/24 Rebeka Bal, Rashid Community Health Worker 08/15/2408/04 Tianna Cooper, [facility] Lead Edi Developer 08/16/24 documented as of this encounter
[2024-12-02] MEDS: cefTRIAXone 1 GM in 0.9 % SODIUM CHLORIDE Mini-bag 100 ML IVPB ×2 (16:56→21:55)
[2024-12-02 17:53] VITALS: BP 116/63; PULSE 100; RESP 30; TEMP 36.9; O2SAT 93; BMI 23.8
--- NOTE | 2024-12-02 19:49 | PC.NURSE ---
Pt admitted to M/S at 1730. He was able to scoot from cot to bed with minimal assistance. MENOMINEE. VS WNL. Pt c/o 2/10 pain in his abdomen but declined aqua-k, ice pack, or tylenol to manage his discomfort. Drank 100% on vanilla ensure. His daughter states he drink up to 4 vanilla boosts at home daily and loves cuties (miniature oranges).
[2024-12-02 20:00] VITALS: BP 103/62; PULSE 90; RESP 36; TEMP 37; O2SAT 90
--- NOTE | 2024-12-02 20:59 | PM.IMHP1 ---
Hospitalist- H&P: KARLA History of Present Illness Date Seen: 12/02/24 Chief complaint: Weakness Narrative: Daniel Everett is a 84 year old male with past medical history of cognitive impairment but was brought to the hospital due to significant change in his mental status over the past couple of days. When I saw the patient he was confused and thus I took all the history from the daughter over the phone (Steph). She mentioned that he lives alone and he is able to do his ADLs, his daughter and her children check on him every day and her son found him down on the ground today and she mentioned that they do not know for how long he has been on the ground. She mentioned that over the past couple of days patient was more confused, with hallucinations. Patient does not have history of diabetes for history of UTIs. It is worth noting that Patient has been on dexamethasone 4 mg for 2 months, was prescribed by hospice provider, as patient was put on hospice but the daughter wanted to change this and asked for treating him though she does not prefer invasive procedures. In addition, his daughter mentioned that in the past her that was labeled with congestive heart failure though later on (and she is not sure about it) this diagnosis has been rescinded to At the ED patient was tachycardic and with respiratory rate more than [address] head was negative for acute changes. Blood glucose was high at 300. Review of Systems Status of ROS: Reports: unobtainable due to mental status PFSH PFS Social History What is your current living situation?: I presently have a place to live Problems where you live: no known problems Problems where you live details: none In the past 12 months, utilities in danger of being shut off: no In past 12 months, lack of transportation kept you from medical appts, meetings, work, or getting things needed for daily living: no In the past 12 mos, have been you worried that your food would run out before you had money to buy more?: never true In the past 12 mos, the food you bought just didn't last and you didn't have money to buy more?: never true Highest level of school completed/degree received: Bachelor's degree Smoking Status: Former smoker Do you use any of these nicotine containing products: None Second hand tobacco smoke exposure: No How often do you have a drink containing alcohol: never AUDIT-C Alcohol total score: 0 Non-prescribed substance use: denies use Caffeine: No How often does anyone, including family, friends and others, physically hurt you: never How often does anyone, including family, friends and others, insult or talk down to you: never How often does anyone, including family, friends and others, threaten you with harm: never How often does anyone, including family, friends and others, scream or curse at you: never service: Yes Exam Narrative: Exam Narrative: Physical exam GENERAL: Confused and disoriented HEAD AND NECK: Atraumatic, normocephalic CARDIOVASCULAR: Tachycardic, Normal S1, S2. RESPIRATORY: Coarse bronchial breathing GASTROINTESTINAL: Not distended NEUROLOGY: Confused and disoriented Const: Vital Signs, click to edit/add: Vital Signs - 24 hr 12/02/24 14:40 12/02/24 17:53 Temperature 98.4 F Pulse Rate [Pulse Oximeter] 112 H 100 Respiratory Rate 18 30 H Blood Pressure [Ri ght Arm] 116/63 Blood Pressure [Ri ght Upper Arm] 124/76 Pulse Oximetry 92 93 Oxygen Delivery Me thod Room Air Room Air Hospitalist - H&P: Result Labs Labs: Short CBC 12/02/24 Range/Units 15:35 WBC 10.11 (4.50-11.00) K/uL Hgb 15.2 (13.5-17.5) gm/dL Hct 45.1 (37.0-53.0) % Plt Count 142 (140-440) K/uL BMP 12/02/24 15:35 Sodium 136 Potassium 4.7 Chloride 100 Carbon Dioxide 25 BUN 52 H Creatinine 1.0 Glucose 308 H Calcium 9.0 Urine 12/02/24 Range/Units 15:05 Urine Color Yellow (Yellow) Urine Appearance Cloudy A (Clear) Urine pH 5.0 (5.0-8.5) Ur Specific [place] 1.025 (1.000-1.030) Urine Protein 1+ A (Negative) Urine Glucose (UA) Trace A (Negative) ECG Attestation: I personally reviewed and interpreted this ECG as follows: ECG interpretation date: 12/02/24 Interpretation: Sinus tachycardia Imaging Chest x-ray: Attestation: I have reviewed the pertinent imaging results. Radiologist's impression: TECHNIQUE: Single radiographic view(s) of the chest. FINDINGS: Low lung volumes. Blunting of the left costophrenic angle which may indicate atelectasis and/or trace effusion. Faint bibasilar pulmonary opacities which may represent atelectasis or consolidation. Normal heart size. There are osseous degenerative changes. IMPRESSION: Low lung volumes. Blunting of the left costophrenic angle which may indicate atelectasis and/or trace effusion. Faint bibasilar pulmonary opacities which may represent atelectasis or consolidation. Dictated by Manish Pierce MD @ 12/02/2024 3:36:33 PM (Electronically Signed) CT scan - head: Radiologist's impression: TECHNIQUE: Axial noncontrast CT cuts were performed from the skull base to the vertex. FINDINGS: There is moderate cerebral volume loss. There is a patchy reduced attenuation within the hemispheric white matter bilaterally consistent with moderate age related small-vessel ischemic demyelination. There is no intracranial mass, hemorrhage, infarction or contusion. There is no midline shift or transtentorial herniation. The calvarium is intact. The visualized paranasal sinuses and orbits appear normal. IMPRESSION: Age-related changes of the brain. No acute abnormality. Please note that all CT scans at this facility use dose modulation, iterative reconstruction, and/or weight-based dosing when appropriate to reduce radiation dose to as low as reasonably achievable. Dictated by José Luis Barcenas MD @ 12/02/2024 6:08:05 PM Assessment and Plan Assessment and plan (1) Toxic metabolic encephalopathy: Problem comment: Altered mental status is likely to be secondary to infection, but it could be related to chronic steroid use Patient has been on dexamethasone 4 mg for 2 months, was prescribed by hospice provider Will start tapering his dexamethasone, will reduce it to 2 mg daily Will start gentle hydration with 500 mL because of concern for congestive heart failure Start ceftriaxone and azithromycin Ordered lactate level Status: Acute (2) Cognitive and behavioral changes: Problem comment: Altered mental status and hallucinations Might be related to steroid use Patient has been on dexamethasone 4 mg for 2 months, was prescribed by hospice provider Will start tapering his dexamethasone, will reduce it to 2 mg daily Status: Acute (3) Pneumonia: Problem comment: Chest x-ray is suggesting consolidation Will start ceftriaxone and azithromycin Status: Acute (4) Sepsis: Problem comment: Tachycardia and increased respiratory rate more than 20 Severe sepsis as his 1st lactate was 8 then after starting fluid 6.6 Repeat lactate acid Get blood culture IV antibiotics Status: Acute (5) Suspected congestive heart failure: Problem comment: Daughter mentioned an echo done in 2021 that showed an ejection fraction of 50-55% otherwise unremarkable Patient needs an echo Status: Acute (6) Urinary tract infection: Problem comment: Patient is having urinary incontinence for the recent couple of days No history of UTI Status: Suspected (7) Hyperglycemia, drug-induced: Problem comment: Blood sugar readings 304 100, patient is not known to be diabetic her his daughter. Hemoglobin A1c was 6.0 in August 2024 that was before starting steroids Will start insulin glargine and low-dose SSI as long as patient is on steroids Status: Acute (8) Chronic use of steroids: Problem comment: As above Status: Acute Total Time Spent Total Time Spent: Time spent: Today I spent 75 minutes seeing the patient, discussing the patient with ER staff, reviewing Expanse and EPIC notes/diagnostics, discussing the care plan with our care time that includes social work, PT/OT, pharmacy, RT, senior living and documenting my impressions and plan in the medical record.
[2024-12-02 21:15] LABS: HCO3 VBG 23 mmol/L (21-28); PCO2 VBG 39 mmHG (40-50); PO2 VBG < 30.1 mmHG (25-47)
[2024-12-02 21:26] LABS: Hemoglobin A1C* 8.7 % (0-5.6)
[2024-12-02] MEDS: 0.9 % SODIUM CHLORIDE 500 ML 500 ML 1000 ML IV ×2 (21:41→22:58)
[2024-12-02] MEDS: ENOXAPARIN 40 MG/0.4 ML INJ SUBCUT (21:55)
[2024-12-02] MEDS: MIRTAZAPINE 15 MG TABLET 30 MG PO (21:55)
[2024-12-02 21:56] LABS: Troponin I* 0.03 ng/mL (0.01-0.04)
[2024-12-02] MEDS: dexAMETHasone 4 MG TABLET 2 MG PO (21:56)
[2024-12-02] MEDS: SODIUM CHLORIDE 0.9 % (FLUSH) 10 ML SYRINGE 5 ML IVF (21:57)
[2024-12-02] MEDS: INSULIN GLARGINE,HUM.REC.ANLOG 100 UNIT/ML INSULN.PEN 15 UNIT SUBCUT (21:57)
[2024-12-02 21:58] LABS: Lactate* 6.6 mmol/L (0.5-1.9)
[2024-12-02 21:58] LABS: NT Pro B Type NatriureticPept* 1420 pg/mL
[2024-12-02] MEDS: AZITHROMYCIN 500 MG in 0.9 % SODIUM CHLORIDE 250 ml 250 ML 255 MG IVPB (22:52)
[2024-12-02 23:00] VITALS: BP 109/57; PULSE 93; PULSE 96; RESP 32; RESP 36; TEMP 37.4; O2SAT 90; O2SAT 96
[2024-12-03] VITALS (10 sets, daily range): BP systolic 122–135; BP diastolic 70–82; PULSE 83–94; RESP 28–42; TEMP 36.5; O2SAT 84–95
[2024-12-03 01:02] LABS: Lactate* 4.6 mmol/L (0.5-1.9)
--- NOTE | 2024-12-03 05:52 | PC.NURSE ---
[id number]: Patient w/AMS, AUGUSTINE, urinary frequency/urgency, and impulsivity. Fall @ 2300. No injuries upon assessment. Daughter Steph updated. SOB at rest and w/activity. Increased work of breathing with respirations 30-40. aware. 3 LT NC applied @ 0500 d/t O2 83% after activity and 87% at rest. Patient constantly removing NC.
[2024-12-03] MEDS: LEVOTHYROXINE 25 MCG TABLET 50 MCG PO (07:07)
--- NOTE | 2024-12-03 08:16 | REH.OT ---
MD requesting hold on OT/PT at this time due to medical status. Will schedule out and reinitiate therapy evals if patient becomes medically appropriate.
[2024-12-03 08:31] LABS: HCO3 VBG 28 mmol/L (21-28); Lactate* 3.8 mmol/L (0.5-1.9); PCO2 VBG 43 mmHG (40-50); PO2 VBG < 30.1 mmHG (25-47); pH VBG 7.415 (7.32-7.43)
[2024-12-03] MEDS: SODIUM CHLORIDE 0.9 % (FLUSH) 10 ML SYRINGE 5 ML IVF ×3 (08:37→20:10)
[2024-12-03] MEDS: VENLAFAXINE ER 75 MG CAPSULE 225 MG PO (08:37)
[2024-12-03] MEDS: METHYLPREDNISOLONE SOD SUCC 40 MG/ML IVP (08:37)
[2024-12-03 08:51] LABS: Albumin* 3.3 g/dL (3.3-5.0); Chloride* 104 mmol/L (96-114)
[2024-12-03 08:52] LABS: Potassium* 4.4 mmol/L (3.6-5.1); Sodium* 138 mmol/L (135-149)
[2024-12-03 08:54] LABS: Anion Gap 8 mEq/L (7-15); Aspartate Amino Transferase* 59 U/L (12-35); Bilirubin Total* 0.6 mg/dL (0.1-1.5); Blood Urea Nitrogen* 43 mg/dL (7-30); Carbon Dioxide* 26 mmol/L (20-32); Creatinine* 0.9 mg/dL (0.5-1.5); Estimated Glomerular Filt Rate 83 ml/min; Total Protein* 6.2 g/dL (6.0-8.3)
[2024-12-03 08:55] LABS: Alanine Aminotransferase* 63 U/L (4-50); Alkaline Phosphatase* 159 U/L (40-150); Calcium* 8.4 mg/dL (8.4-10.6); Glucose* 52 mg/dL (60-115); Phosphorus* 3.5 mg/dL (2.5-4.5)
[2024-12-03 08:58] LABS: Mean Corpuscular HGB Conc 33 gm/dL (32-36); Mean Corpuscular Hemoglobin 35 pg (26-34); Mean Corpuscular Volume 108 fL (80-100); Platelet Count* 114 K/uL (140-440)
[2024-12-03 09:04] LABS: Slide Review Reflex No
[2024-12-03 10:42] LABS: PCR FLU A POSITIVE PCR FLU A (Negative); PCR FLU B Negative PCR FLU B (Negative); PCR RSV Negative PCR RSV (Negative); SARS PCR* Negative SARS-CoV-2 (Negative)
[2024-12-03] MEDS: MORPHINE 10 MG/0.5 ML ORAL SOLN PO ×2 (11:08→23:56)
[2024-12-03] MEDS: FUROSEMIDE 10 MG/ML inj 40 MG IVP (11:09)
--- NOTE | 2024-12-03 16:09 | P.IMPN_ITS ---
Progress Note: A&P Assessment and plan (1) Toxic metabolic encephalopathy: Problem details: Altered mental status is likely to be secondary to infection, but it could be related to chronic steroid use Patient has been on dexamethasone 4 mg for 2 months, was prescribed by hospice provider Will start tapering his dexamethasone, will reduce it to 2 mg daily Will start gentle hydration with 500 mL because of concern for congestive heart failure Start ceftriaxone and azithromycin Ordered lactate level Status: Acute (2) Cognitive and behavioral changes: Problem details: Altered mental status and hallucinations Might be related to steroid use Patient has been on dexamethasone 4 mg for 2 months, was prescribed by hospice provider Will start tapering his dexamethasone, will reduce it to 2 mg daily Status: Acute (3) Pneumonia: Problem details: Chest x-ray is suggesting consolidation Will start ceftriaxone and azithromycin Status: Acute (4) Sepsis: Problem details: Tachycardia and increased respiratory rate more than 20 Severe sepsis as his 1st lactate was 8 then after starting fluid 6.6 Repeat lactate acid Get blood culture IV antibiotics Status: Acute (5) Suspected congestive heart failure: Problem details: Daughter mentioned an echo done in 2021 that showed an ejection fraction of 50- 55% otherwise unremarkable Patient needs an echo Status: Acute (6) Urinary tract infection: Problem details: Patient is having urinary incontinence for the recent couple of days No history of UTI Status: Suspected (7) Hyperglycemia, drug-induced: Problem details: Blood sugar readings 304 100, patient is not known to be diabetic her his daughter. Hemoglobin A1c was 6.0 in August 2024 that was before starting steroids Will start insulin glargine and low-dose SSI as long as patient is on steroids Status: Acute (8) Chronic use of steroids: Problem details: As above Status: Acute Plan This is an 84-year-old male who was recently on hospice for dementia, living at home and doing ADLs independently. His recently and he has been declining in the last few months. In the last few days he has been having more difficulty breathing and weakness. He came in septic with a lactate of 8. He test positive for influenza A. He has a history of heart failure. Despite antibiotics and IV fluids, his lactate is still elevated and he is now showing signs of pulmonary edema. In discussion with his daughter, she would like him to be comfort cares only. He has transitioned over to comfort cares today. Time Spent With Patient Total time spent: Today I spent 60 minutes seeing the patient, discussing advanced care planning including treatment of sepsis, volume overload, comfort focus treatment. We also discussed the possibility of discharge early this week with a possibility of hospice, reviewing Expanse and EPIC notes/diagnostics/labs, discussing the care plan with our care team that includes social work, PT/OT, pharmacy, RT, senior living and documenting my impressions and plan in the medical record. Subjective Time Seen by Provider: 07:59 Date Seen: 12/03/24 Interval history: Cal initially refused labs this morning. He was breathing rapidly and heavily. I saw him, reviewed his chart, and ordered a CT chest for PE and a triple swab for RSV, flu, COVID. I called his daughter, Steph, and spoke with her as well. We discussed his tenuous status as well as his breathing and high risk of mortality given sepsis with a markedly elevated lactate. And noted that she was coming in soon and that we could talk more then after she saw him. When she came in she noted how heavily he was breathing and told me that he has not wanted to live after his recently. She told me that she sees how much he is currently suffering and really wants him to be comfortable. We discussed his history of heart failure and how to difficulty fluid status is with heart failure in the setting of sepsis. She asked me to change him to comfort cares only, not do the echo or the CT scan, and stop the antibiotics so that he could achieve comfort and not prolong his . More of his family arrived later in the day and I briefly spoke with several of them. They were all on board with this plan. Exam Narrative: Exam Narrative: General: Moderate respiratory distress. Somnolent, oriented to self. No pallor. No jaundice. Oropharynx: Clear. Mucous membranes moist. Cardiovascular: Regular rate and rhythm. No murmurs, gallops, or rubs. Respiratory: Tachypneic, laborous breathing, loud upper airway sounds, crackles throughout both lung blanca. No wheezes. Abdomen: Bowel sounds present. Soft, nondistended, nontender. Extremities: No lower extremity edema. Const: Vital Signs, click to edit/add: Vital Signs - 24 hr 12/02/24 17:53 12/02/24 20:00 12/02/24 23:00 Temperature 98.4 F 98.6 F 99.3 F Pulse Rate Pulse Rate [Pulse Oximeter] 100 90 93 Respiratory Rate 30 H 36 H 32 H Blood Pressure [Ri ght Arm] 116/63 103/62 109/57 L Pulse Oximetry 93 90 96 Oxygen Delivery Me thod Room Air Room Air Oxygen Flow Rate 12/02/24 23:00 12/02/24 23:00 12/02/24 23:00 Temperature Pulse Rate 96 Pulse Rate [Pulse Oximeter] 93 Respiratory Rate 36 H 32 H Blood Pressure [Ri ght Arm] Pulse Oximetry 90 Oxygen Delivery Me thod Room Air Oxygen Flow Rate 12/03/24 01:59 12/03/24 05:01 12/03/24 05:02 Temperature 97.7 F Pulse Rate Pulse Rate [Pulse Oximeter] 93 Respiratory Rate 32 H Blood Pressure [Ri ght Arm] 135/70 Pulse Oximetry 90 84 L 87 L Oxygen Delivery Me thod Room Air Room Air Room Air Oxygen Flow Rate 12/03/24 05:02 12/03/24 07:00 12/03/24 07:00 Temperature 97.7 F Pulse Rate Pulse Rate [Pulse Oximeter] 94 Respiratory Rate 42 H Blood Pressure [Ri ght Arm] 122/82 Pulse Oximetry 91 95 95 Oxygen Delivery Me thod Nasal Cannula Nasal Cannula Nasal Cannula Oxygen Flow Rate 3.0 2 2 12/03/24 07:00 12/03/24 07:34 12/03/24 15:11 Temperature Pulse Rate 83 Pulse Rate [Pulse Oximeter] 94 Respiratory Rate 42 H 30 H Blood Pressure [Ri ght Arm] Pulse Oximetry Oxygen Delivery Me thod Room Air Oxygen Flow Rate Labs Labs: Laboratory Results - last 24 hr 12/02/24 12/02/24 12/03/24 21:11 21:45 01:01 WBC RBC Hgb Hct MCV MCH MCHC Plt Count VBG pH 7.380 VBG pCO2 39 L VBG pO2 < 30.1 VBG HCO3 23 Sodium Potassium Chloride Carbon Dioxide Anion Gap BUN Creatinine Estimated Creat Clear Estimated GFR Glucose Hemoglobin A1c 8.7 H Lactate 8.0 H* 6.6 H* 4.6 H* Calcium Phosphorus Magnesium Total Bilirubin AST ALT Alkaline Phosphatase Troponin I 0.03 NT-Pro-B Natriuret Pep 1420 Total Protein Albumin SARS-CoV-2 (PCR) Influenza Type A (PCR) Influenza Type B (PCR) RSV (PCR) 12/03/24 12/03/24 08:15 09:37 WBC 8.20 RBC 4.00 L Hgb 14.0 Hct 43.0 MCV 108 H MCH 35 H MCHC 33 Plt Count 114 L VBG pH 7.415 VBG pCO2 43 VBG pO2 < 30.1 VBG HCO3 28 Sodium 138 Potassium 4.4 Chloride 104 Carbon Dioxide 26 Anion Gap 8 BUN 43 H Creatinine 0.9 Estimated Creat Clear 51.30 Estimated GFR 83 Glucose 52 L Hemoglobin A1c Lactate 3.8 H Calcium 8.4 Phosphorus 3.5 Magnesium 2.0 Total Bilirubin 0.6 AST 59 H ALT 63 H Alkaline Phosphatase 159 H Troponin I NT-Pro-B Natriuret Pep Total Protein 6.2 Albumin 3.3 SARS-CoV-2 (PCR) Negative SARS-CoV-2 Influenza Type A (PCR) POSITIVE PCR FLU A A Influenza Type B (PCR) Negative PCR FLU B RSV (PCR) Negative PCR RSV
--- NOTE | 2024-12-03 18:27 | PC.NURSE ---
End of shift-- Pt pleasant and cooperative. Oriented to person only as per baseline. VSS, though tachypneic, and pt is afebrile. SPO2 maintained >90% on 2L per n.c. He has denied any pain. This morning, pt was very tachypneic with RR 42-48 and labored breathing noted at rest and worsened with exertion. Crackles auscultated throughout bilateral bases and up midway through the posterior of lungs. MD was notified and contacted pt's daughter who then came to pt's bedside. The decision was made by MD and daughter to transition pt's care to a goal of comfort. Pt was given IV lasix once and Roxanol once per MD order. Pt then slept most of the day while multiple family members were at bedside. This afternoon, RR 30, fine crackles were auscultated in bilateral bases only and pt stated, I feel better. BG was 64 this morning, pt drank a boost shake and BG was improved to 105. Pt has refused any more food today. He was up to the BR with SBA and walker and tolerated it fairly well, though he does forget to call for help and fall alarms are in place. Report to oncoming shift.
[2024-12-03] MEDS: MIRTAZAPINE 15 MG TABLET 30 MG PO (20:10)
--- NOTE | 2024-12-04 06:49 | PC.NURSE ---
End of shift summary: Pt has been alert & oriented to self and place only. He is SBA with 2ww to the BR, utilized urinal overnight. PIV in right AC is SL and secured with tubi-professional fighter. Pt?s son spent the night at bedside. No c/o pain, nausea or dizziness overnight. PRN morphine given once @ 0000 d/t increased RR at 40. Pt slept well and appeared comfortable the remainder of the night. He was continent of B&B, no BM this shift. Supplemental O2 continued overnight d/t O2 sats at 85% on RA. Droplet precautions ongoing d/t Influenza A.?
[2024-12-04 07:47] VITALS: RESP 28
[2024-12-04] MEDS: MORPHINE 10 MG/0.5 ML ORAL SOLN PO ×8 (09:15→22:53)
--- NOTE | 2024-12-04 09:17 | NUTR.NU ---
RDN with nutrition screen related to positive skin risk. Patient admitted with influenza A+, sepsis, AMS, pneumonia. Per MD during IDT, patient is now comfort cares and may discharge on hospice. Not appropriate for visit with current goals of cares. RDN to monitor.
--- NOTE | 2024-12-04 11:32 | REH.OT ---
OT: OT/PT orders discontinued due to patient on comfort cares.
[2024-12-04] MEDS: fentaNYL 12 mcg/hr PATCH 1 PATCH TRANSDERMA (11:47)
[2024-12-04] MEDS: SODIUM CHLORIDE 0.9 % (FLUSH) 10 ML SYRINGE 5 ML IVF ×2 (11:47→21:11)
[2024-12-04 15:00] VITALS: RESP 30
--- NOTE | 2024-12-04 15:05 | PM.IMPN1 ---
Progress Note: A&P Assessment and plan (1) End of life care: Problem details: This is an 84-year-old male who was recently on hospice for dementia, living at home and doing ADLs independently. His recently and he has been declining in the last few months. In the last few days he has been having more difficulty breathing and weakness. He came in septic with a lactate of 8. He test positive for influenza A. He has a history of heart failure. Despite antibiotics and IV fluids, his lactate is still elevated and he developed pulmonary edema. In discussion with his daughter, she wanted him to be comfort cares only. He was transitioned over to comfort cares 12/03/2024. He is more comfortable, and his family is realistic about his prognosis. They are hopeful to take him home on hospice if he makes it through tonight. They would like us to start a fentanyl patch and Ozuna catheter for comfort cares, which I ordered today. Status: Acute (2) Toxic metabolic encephalopathy: Problem details: Altered mental status is likely to be secondary to infection, but it could be related to chronic steroid use Patient has been on dexamethasone 4 mg for 2 months, was prescribed by hospice provider Will start tapering his dexamethasone, will reduce it to 2 mg daily Will start gentle hydration with 500 mL because of concern for congestive heart failure Start ceftriaxone and azithromycin Ordered lactate level Status: Acute (3) Cognitive and behavioral changes: Problem details: Altered mental status and hallucinations Might be related to steroid use Patient has been on dexamethasone 4 mg for 2 months, was prescribed by hospice provider Will start tapering his dexamethasone, will reduce it to 2 mg daily Status: Acute (4) Pneumonia: Problem details: Chest x-ray is suggesting consolidation Will start ceftriaxone and azithromycin Status: Acute (5) Sepsis: Problem details: Tachycardia and increased respiratory rate more than 20 Severe sepsis as his 1st lactate was 8 then after starting fluid 6.6 Repeat lactate acid Get blood culture IV antibiotics Status: Acute (6) Suspected congestive heart failure: Problem details: Daughter mentioned an echo done in 2021 that showed an ejection fraction of 50-55% otherwise unremarkable Patient needs an echo Status: Acute (7) Urinary tract infection: Problem details: Patient is having urinary incontinence for the recent couple of days No history of UTI Status: Suspected (8) Hyperglycemia, drug-induced: Problem details: Blood sugar readings 304 100, patient is not known to be diabetic her his daughter. Hemoglobin A1c was 6.0 in August 2024 that was before starting steroids Will start insulin glargine and low-dose SSI as long as patient is on steroids Status: Acute (9) Chronic use of steroids: Problem details: As above Status: Acute Time Spent With Patient Total time spent: Today I spent 35 minutes seeing the patient, discussing care with the patient's family, reviewing [facility] and EPIC notes/diagnostics/labs, discussing the care plan with our care team that includes social work, PT/OT, pharmacy, RT, mcc and documenting my impressions and plan in the medical record. Subjective Time Seen by Provider: 08:00 Date Seen: 12/04/24 Interval history: Cal's daughter and son are in the room with him. Cal is sleepy and confused. Steph notes that he appears more comfortable today, he is impulsive about attempting to get up, but in some ways appears worse to her. She and her brother continue to desire comfort cares. She notes that if he makes it through tonight, they would like to try to take him home with hospice. We discussed end of life cares and she would like us to start a low dose fentanyl patch for comfort and a ozuna catheter. Exam Narrative: Exam Narrative: General: Comfortable. Sleeping, arousable, somnalent, oriented to self, confused. No pallor. No jaundice. Oropharynx: Clear. Mucous membranes moist. Cardiovascular: Regular rate and rhythm. No murmurs, gallops, or rubs. Respiratory: Less tachypneic, breathing is no longer a laborious. Rhonchi throughout, no crackles, no wheezes. Abdomen: Bowel sounds present. Soft, nondistended, nontender. Extremities: No lower extremity edema. Const: Vital Signs, click to edit/add: Vital Signs - 24 hr 12/03/24 15:11 12/03/24 19:00 12/03/24 22:16 Respiratory Rate 30 H 32 H Pulse Oximetry 85 L 94 Oxygen Delivery Me thod Room Air Room Air Nasal Cannula Oxygen Flow Rate 3 12/03/24 23:00 12/03/24 23:00 12/04/24 07:47 Respiratory Rate 28 H 28 H 28 H Pulse Oximetry Oxygen Delivery Me thod Nasal Cannula Nasal Cannula Oxygen Flow Rate 3 3
--- NOTE | 2024-12-04 20:57 | PC.NURSE ---
Spoke with Stpeh (patient's daughter) about patient becoming increasingly agitated when he has to urinate. Patient has a Hart catheter per family's request. Patient appears to rest comfortably until he feels the urge to urinate. Patient yells out and pulls and tugs on Hart while attempting to urinate . The Hart has wells colored urine d/t irritation. Steph requested to increase comfort medication administration to keep patient more restful.
[2024-12-04] MEDS: LORazepam 2 MG/ML inj IVP ×2 (21:08→23:37)
[2024-12-04 23:40] VITALS: RESP 30
--- NOTE | 2024-12-04 23:46 | PC.NURSE ---
End of Shift: Patient opening eyes to voice and touch. Answering some yes/no questions. Patient occasional moaning and at times pulling at catheter when he feels urge to urinate, see previous note, provided education on Hart and reassurance. PRN Morphine and Ativan for comfort. Turn and reposition and oral cares every 2 hours. Hart patent. No BM this shift.
[2024-12-05] MEDS: MORPHINE 10 MG/0.5 ML ORAL SOLN PO ×2 (01:20→09:16)
[2024-12-05] MEDS: LORazepam 2 MG/ML inj IVP (04:58)
--- NOTE | 2024-12-05 06:53 | PC.NURSE ---
End of shift summary: Pt was intermittently restless overnight. PRN oral Morphine & PRN IV Ativan alternated for comfort. Last dose of morphine was at 0120?and last dose of Ativan at *0500. Hart catheter is patent & draining tea-colored, bloody urine. Total output: 280 mL. Due to patient pulling at tube for previous shift, there urine leaking around the catheter with some bloody trauma at the tip of his penis. Respiratory rate was 30-32 all night. Pt slept well in between cares & repositioning. With any movement, he would moan out in discomfort. PIV in right FA is SL and C/D/I, secured with [employer] communications manager. Fentanyl patch located on right lateral arm. Patient?s grand daughter spent the night at bedside. ?
[2024-12-05 07:00] VITALS: RESP 28
[2024-12-05 09:00] VITALS: RESP 34
--- NOTE | 2024-12-05 14:03 | PC.SOCIAL ---
Discharge planning: licensed master social worker notified [facility] that the pt this morning at the hospital. Prateek was supposed to come out to the pt's house this afternoon to complete the hospice intake, but the pt has now passed on. Social work to follow-up as needed.
--- NOTE | 2024-12-05 14:55 | PM.DSD ---
Discharge Sum: Prov Provider Time Seen by Provider: 09:30 Date Seen: 12/05/24 Primary care physician: Not a Local Provider Consults: 12/02/24 21:01 Consult to Brake Rider [CONS] Routine Comment: Reason for Consult:: Discharge Planning Needs Pronouncing clinician: Lauryn Kirkland Discharge Sum: Diag PCOD Cause of : Influenza A with respiratory manifestations Contributing Factors (1) End of life care: (2) Toxic metabolic encephalopathy: (3) Cognitive and behavioral changes: (4) Pneumonia: (5) Sepsis: (6) Suspected congestive heart failure: (7) Urinary tract infection: (8) Hyperglycemia, drug-induced: (9) Chronic use of steroids: (10) Influenza A: Discharge Sum: Summary Date and Time Date of admission: 12/03/24 13:09 Date of : 12/05/24 Time of : 10:20 Summary Details: Daniel Everett is a 84 year old male with past medical history of cognitive impairment but was brought to the hospital due to significant change in his mental status over the past couple of days. When I saw the patient he was confused and thus I took all the history from the daughter over the phone (Steph). She mentioned that he lives alone and he is able to do his ADLs, his daughter and her children check on him every day and her son found him down on the ground today and she mentioned that they do not know for how long he has been on the ground. She mentioned that over the past couple of days patient was more confused, with hallucinations. Patient does not have history of diabetes for history of UTIs. It is worth noting that Patient has been on dexamethasone 4 mg for 2 months, was prescribed by hospice provider, as patient was put on hospice but the daughter wanted to change this and asked for treating him though she does not prefer invasive procedures. In addition, his daughter mentioned that in the past her that was labeled with congestive heart failure though later on (and she is not sure about it) this diagnosis has been rescinded to At the ED patient was tachycardic and with respiratory rate more than [address] head was negative for acute changes. Blood glucose was high at 300. Cal continued to have signficant respiratory distress and persistent sepsis with lactic acidosis. He was found to be influenza A positive. His daughter, Steph, who is POA, spoke with the family and requested that he be comfort cares. He was transitioned to comfort cares and peacefully with his daughter at the bedside. Additional Data Confirmation of as documented by pronouncing clinician: no pulse, no respirations, no heart sounds and pupils fixed and dilated Family: at bedside Attending/PCP notified?: Yes Attending physician: Lauryn Kirkland MD Was code activated?: No Autopsy requested?: No odd shoe examiner notified?: No Hospice patient?: No
--- NOTE | 2024-12-05 15:36 | PC.NURSE ---
Nursing Care Hours: 5901-1721 Pt this shift had labored breathing with 3L NC. Some restlessness in extremities noted. Mottled skin throughout LE and UE. 100ml u/o brown blood in cath bag. Oral morphine given. Pt washed up and reposition to R side. Health Services Manager was informed Pt at 1020. Hart removed, fentanyl patch discarded with witness. All necessary procedures completed and pt removed at 1330.
== END 2024-12-05 13:30 | disposition expired | DRG 871 ==
LOC: ED 16:48 → MEDSURG 21:07
PROVIDERS: Admitting Provider Family Medicine; Emergency Provider Emergency Medicine Emergency Medical Services; Visit Provider Student in an Organized Health Care Education/Training Program
DX: A41.9 Sepsis, unspecified organism (principal); G93.41 Metabolic encephalopathy; J10.00 Influenza due to other identified influenza virus with unspecified type of pneumonia; I50.31 Acute diastolic (congestive) heart failure; N39.0 Urinary tract infection, site not specified; R65.20 Severe sepsis without septic shock; R29.6 Repeated falls; B96.89 Other specified bacterial agents as the cause of diseases classified elsewhere; G31.84 Mild cognitive impairment of uncertain or unknown etiology; R73.9 Hyperglycemia, unspecified; Z79.52 Long term (current) use of systemic steroids; Z51.5 Encounter for palliative care; T38.0X5A Adverse effect of glucocorticoids and synthetic analogues, initial encounter; Y92.9 Unspecified place or not applicable
CPT/HCPCS: 36415; 51701; 51798; 70450; 71045; 80048; 80053; 81001; 82803; 82962; 83036; 83605; 83735; 83880; 84100; 84484; 85025; 85027; 87040; 87086; 87631; 93005; 99284; 99285; A9270; G0378; J0456; J0696; J1650; J1815; J1940; J2060; J2919; J7030; J7050